=== PATIENT | male | born 1960 | race Caucasian/White ===

== ENCOUNTER → 2017-05-12 | Outpatient (CLI) | payer MEDICARE ==
[2017-05-12 08:16] LABS: Basophils % (A) 1 %; Eosinophils # (A) 0.1 k/uL (0-0.7); Eosinophils % (A) 4 %; HCT 46.6 % (39.0-53.0); HGB 14.8 gm/dL (13.0-17.5); Lymphocytes # (A) 0.7 k/uL (1.0-4.8); Lymphocytes % (A) 22 %; MCH 33.4 pg (25.0-35.0); MCHC 31.8 g/dL (31.0-37.0); MCV 105.2 fL (80.0-100.0); Macrocytosis Slight; Mean Platelet Volume 7.6; Monocytes # (A) 0.2 k/uL (0-1.0); Monocytes % (A) 5 %; Neutrophils % (A) 66 %; Platelet Count 141 k/uL (150-450); RBC 4.43 m/uL (4.30-5.90); RDW 13.6 % (11.5-15.5); WBC 3.1 k/uL (3.8-10.6)
[2017-05-12 08:19] LABS: Appearance,Urine Clear (Clear); Bilirubin,Urine Negative (Negative); Blood,Urine Negative (Negative); Color,Urine Yellow; Glucose,Urine (UA) Negative (Negative); Ketones,Urine Negative (Negative); Leukocyte Esterase,Urine Negative (Negative); Nitrite,Urine Negative (Negative); Protein,Urine Negative (Negative); Urobilinogen,Urine <2.0 mg/dL (<2.0)
[2017-05-12 08:25] LABS: Partial Thromboplastin Time 22.2 sec (22.0-30.0); Prothrombin Time 9.5 sec (9.0-12.0)
[2017-05-12 08:27] LABS: Anion Gap 8 mmol/L; Blood Urea Nitrogen 17 mg/dL (9-20); Calcium 10.4 mg/dL (8.4-10.2); Carbon Dioxide 30 mmol/L (22-30); Chloride 104 mmol/L (98-107); Glucose 97 mg/dL (74-99); Sodium 142 mmol/L (137-145)
== END | disposition home or self-care (01) ==
LOC: LABWHC1 07:10
PROVIDERS: ATTEND Orthopaedic Surgery Orthopaedic Surgery of the Spine
DX: Z01.812 Encounter for preprocedural laboratory examination (principal); Z01.818 Encounter for other preprocedural examination
CPT/HCPCS: 36415; 80048; 81003; 85025; 85610; 85730; 86850; 86900; 86901; 87070

== ENCOUNTER 2017-05-21 06:21 | Inpatient (IN) | payer MEDICARE, OTHER ==
[2017-05-14 11:09] VITALS: BMI 25.8
[~2017-05-21 06:21] MED LIST: BACITRACIN 50,000 UNIT, POLYMYXIN B 500,000 UNIT in SODIUM CHLORIDE 0.9% IRRIGATIO 1,00... IRRIGATION ONE; DEXAMETHASONE SOD PHOSPHATE 10 MG/ML 1 ML VIAL IV ONE; LACTATED RINGERS 1,000 ML IV SCH; ceFAZolin IN SWFI 2 GM/20 ML SYRINGE IVP ONE
[2017-05-21] MEDS ORDERED: LIDOCAINE 1% 20 ML VIAL (10MG/ML) FOR IV START INTRADERMA ONE (06:47)
[2017-05-21] MEDS: ONDANSETRON 4 MG/2 ML VIAL IVP ONE ×2 (06:47→12:45)
[2017-05-21] MEDS ORDERED: ePHEDrine SULFATE/0.9% NACL/PF 50 MG/5 ML SYRINGE IV ONE (09:04)
[2017-05-21] MEDS ORDERED: MIDAZOLAM 2 MG/2 ML VIAL ONE (09:04)
[2017-05-21] MEDS ORDERED: NEOSTIGMINE 1 MG/ML 10 ML VIAL ONE (09:04)
[2017-05-21] MEDS ORDERED: PHENYLEPHRINE-0.9% NACL SYG 1 MG/10 ML SYRINGE ONE (09:04)
[2017-05-21] MEDS ORDERED: ROCURONIUM BROMIDE 10 MG/ML 10 ML VIAL IV ONE (09:04)
[2017-05-21] MEDS ORDERED: GLYCOPYRROLATE 0.2 MG/ML 2 ML VIAL ONE (09:04)
[2017-05-21] MEDS ORDERED: SUCCINYLCHOLINE CHLORIDE 100 MG/5 ML SYR IV ONE (09:04)
[2017-05-21] MEDS ORDERED: fentaNYL (PF) 50 MCG/ML 2 ML AMP ONE (09:04)
[2017-05-21] MEDS ORDERED: PROPOFOL 10 MG/ML 20 ML VIAL IV ONE (09:04)
[2017-05-21] MEDS ORDERED: HYDROmorphone (PF) 1 MG/ML ONE (09:04)
[2017-05-21] MEDS ORDERED: GELATIN SPONGE,ABSORB (LARGE) 1 EACH SPONGE TOPICAL ONE (09:30)
[2017-05-21] MEDS ORDERED: LIDOCAINE 0.5% (PF) 5 MG/ML (50 ML SDV) SQ ONE (09:30)
[2017-05-21] MEDS ORDERED: THROMBIN (BOVINE) 5,000 UNIT VIAL TOPICAL ONE (09:30)
[2017-05-21] MEDS ORDERED: LACTATED RINGERS 1,000 ML IV ONE (11:04)
[2017-05-21] MEDS ORDERED: ONDANSETRON 4 MG/2 ML VIAL IVP PRN (11:45)
[2017-05-21] MEDS ORDERED: MAGNESIUM HYDROXIDE 2,400 MG/10 ML CUP PO PRN (11:45)
[2017-05-21] MEDS ORDERED: BENZOCAINE/MENTHOL LOZENG 1 EACH LOZENGE MUCOUS MEM PRN (11:45)
[2017-05-21] MEDS ORDERED: HYDROcodone/APAP 5-325MG 1 EACH TAB PO PRN (11:45)
[2017-05-21] MEDS ORDERED: HYDROmorphone 0.5 MG/0.5 ML SYRINGE IVP PRN ×2 (11:45)
[2017-05-21] MEDS ORDERED: DIAZEPAM 5 MG TAB PO PRN (11:45)
[2017-05-21] MEDS ORDERED: HYDROcodone/APAP 7.5-325MG 1 EACH TAB PO PRN (11:48)
--- NOTE | 2017-05-21 11:54 | P.OP ---
Date of Procedure: 05/21/17 Preoperative Diagnosis: Spinal stenosis L5-S1, degenerative disc disease L5-S1, lower extremity radiculopathy, facet arthrosis, low back pain Postoperative Diagnosis: Same Anesthesia: GETA Pathology: none sent Condition: stable Disposition: PACU Description of Procedure: DESCRIPTION OF PROCEDURE(S): BRIEF OPERATIVE NOTE Preoperative Diagnosis: Spinal stenosis L5-S1, degenerative disc disease L5-S1, facet arthrosis, low back pain with lower extremity radiculopathy, neurogenic claudication Postoperative Diagnosis: Same Procedure: Laminectomy and decompression L5-S1 Minimally invasive Posterior lateral decompression and facet fusion L5-S1 Minimally invasive Transforaminal lumbar interbody fusion for a 360 fusion L5-S1 Discectomy for decompression L5-S1 Placement of interbody graft L5-S1 Local autogenous bone grafting Harvesting of bone marrow aspirate via the pedicle of L4 5 Use of Cell Saver Use of bone graft extenders Surgeon: Dr. Carreon Large Animal Veterinarian: Terell KERN who is present throughout the entire the case persistence during positioning, dissection, exposure, visualization, and all crucial elements of the case as well as closure. Anesthesia: General anesthesia Estimated blood loss: Approximately 175 mL Complications: None apparent Components implanted: K2M minimally invasive [place] pedicle screw system with use of 4 screws measuring 6.5 x 50 mm with 2 rods and 1 [place] interbody titanium cage and 1 osteo amp sponge and DBX bone fibers to supplement the local autogenous bone graft and bone marrow aspirate Disposition: To recovery room in good stable condition. OPERATIVE INDICATIONS The patient has had long-standing issues in their lower back and lower extremities. He was found have significant changes lumbar spine with severe disc degeneration and evidence of spinal stenosis particular L5-S1 which correlated well with his low back and lower extremity symptoms. He had significant facet arthrosis and was having worsening neurogenic claudication despite conservative care. The patient has been through conservative treatment. We discussed various treatment options including surgery, and the patient wishes to proceed with surgery We discussed the risk, patient's alternatives and benefits of surgery including but not limited to, risk of bleeding risk of infection, risk of need for further surgery, risk of decreased , loss of motion, muscle function, malunion nonunion, hardware failure, nerve damage, paralysis, heart attack, blindness and . OPERATIVE SUMMARY After discussing all the risks, patient alternatives and benefits at length, the patient elected to proceed with surgical intervention, signed informed consent, and presented for their procedure. The patient was seen and examined in the preoperative holding area and the surgical site was marked. The patient was given antibiotics and brought to the operating room. The patient was sedated and intubated by anesthesia in standard fashion. The patient was positioned on to the operating room table in a prone position on the appropriate frame which was well-padded and well molded. We were careful to pad any bony prominences and pressure points. We were careful to maintain the patient's cervical spine and good neutral alignment and position throughout. The patient was prepped and draped in a normal standard fashion. An appropriate timeout and keystone protocol performed. We were able to proceed with the surgery. The local wound area was infiltrated with local anesthetic. I was able utilize C-arm guidance to establish appropriate position over the pedicles bilaterally at the appropriate levels at L5-S1. With the appropriate levels confirmed was able to make small stab incisions over the appropriate pedicle sites bilaterally. Utilizing C-arm in his house able to establish a Jamshidi needle over the lateral aspect of the pedicle and advanced the trocar into the pedicle being careful not to breech superiorly inferiorly medially or laterally. Position was confirmed regularly with AP and lateral images on C- arm. I was able to establish the trocar into the pedicle appropriately into the posterior aspect of the vertebral body bilaterally at the appropriate levels at L5-S1. This was done at each of the pedicle positions and each of the vertebrae. I was able place the guidewire into the trocar and into the vertebral body appropriately under C-arm guidance. Dissection was taken down over the wire to the appropriate starting position for the screw placed. The appropriate length screw was chosen, threaded over the guidewire and screwed appropriately into the pedicle and vertebral body under C-arm guidance in excellent alignment and position with good bony purchase. This is done at each of the screw sites at the appropriate levels bilaterally at L5 and S1. With the screws intact I extended the incision to connect the screw hole sites on the most symptomatic side on the right. I dissected down to establish access over the pars and lamina to the base of the spinous process. I was able to expose the facet joint. The capsule the facet was taken down and showed some facet arthrosis at the joint. I was able to use a combination of curettes and [place] rongeurs and a high-speed drill to take down the facet joint and do a facetectomy. Partial laminectomy was also performed. Note was made of significant ligamentum flavum thickening and inferior osteophytes at the facet joints causing significant stenosis prior to the decompression. I was able get excellent foraminal decompression and central decompression with undermining across midline to perform a laminectomy centrally and contralaterally. As able get good central decompression. The ligamentum flavum was taken down to further decompress centrally and at bilateral neural foramen. I was able to expose the disc space and visualize the traversing nerve root. Note was made of some disc protrusion at the level causing further compression of the nerve root. I was able to establish a annulotomy at the appropriate level protecting soft tissue and neural structures. Note was made of some disc desiccation at the disc. I performed a complete discectomy with accommodation of curettes and rasps and scrapers. A discectomy provided further decompression. I was able get good endplate preparation at the disc space. I sized for the appropriate size interbody spacer protecting the soft tissue and neural structures. The wound was copiously irrigated and suctioned dry. There is no evidence of any dural tear or leak. I was able to pack the disc space with local autogenous bone graft as well as a small amount of bone graft which was also placed into the interbody cage itself. Protecting the soft tissue structures and neural structures I was able place the interbody cage in good alignment and good position with good fit and fill at the interbody space at L5-S1. His issues was confirmed with C-arm guidance. Good hemostasis maintained. There is no evidence of any dural tear or leak. The wound was irrigated and suctioned dry. With the hardware intact, intraoperative C-arm imaging was again taken which showed good alignment and position of the hardware at the appropriate levels at L5-S1. We were then able to measure, contour and place the rods and appropriate hardware bilaterally. I was able to place capcrews, tighten them down, and torque them with the torque screwdriver appropriately. With this intact I was able to place the local autogenous bone graft with additional bone graft enhancer as necessary into the posterior lateral gutters over the decorticated transverse processes. The remainder of the bone graft was placed over the facet joint on the contralateral side after taking down the facet joint capsule. With the bone graft intact, a stable construct, and good decompression at the appropriate levels, we were able to proceed with closure. Good hemostasis was maintained. There is no evidence of dural tear or leak. The fascia was closed for a watertight closure. he subcuticular tissue was closed with absorbable suture. The wound was cleaned and dried and dressed with the appropriate dressing. The drapes were broken down. The patient was gently rolled back onto their hospital bed being careful to maintain their cervical spine and good neutral alignment and position. They were woken up by anesthesia, extubated, and brought to the recovery room in good stable condition. The patient will be admitted to the hospital for appropriate postoperative care , medical management and monitoring. We will continue to follow them closely about the postoperative course.
[2017-05-21] MEDS ORDERED: ENALAPRILAT 1.25 MG/ML 1 ML VIAL IVP ONE (12:54)
[2017-05-21] MEDS: HYDROmorphone 0.5 MG/0.5 ML SYRINGE IVP PRN ×4 (13:15→13:53)
--- NOTE | 2017-05-21 13:18 | FL ---
Fluoroscopy HISTORY: Lumbar fusion 65 seconds fluoroscopy time supplied to the referring clinician. 2 intraoperative C-arm images docum ent the procedure. See dictated report from orthopedic surgery.
--- NOTE | 2017-05-21 13:18 | XR ---
Limited lumbar spine HISTORY: Lumbar fusion 2 intraoperative C-arm images document the procedure
[2017-05-21] MEDS: SODIUM CHLORIDE 0.9% 1,000 ML IV SCH ×2 (14:53→14:54)
[2017-05-21] MEDS: clonazePAM 1 MG TAB PO SCH (17:31)
[2017-05-21] MEDS: ceFAZolin IN SWFI 2 GM/20 ML SYRINGE IVP SCH (17:31)
[2017-05-21] MEDS ORDERED: ENALAPRILAT 1.25 MG/ML 1 ML VIAL IVP PRN (17:37)
[2017-05-21] MEDS: HYDROcodone/APAP 5-325MG 1 EACH TAB PO PRN (19:12)
[2017-05-21] MEDS: carBAMazepine 400 MG TAB.ER.12H PO SCH (20:19)
[2017-05-21] MEDS: LITHIUM CARBONATE 300 MG CAP PO SCH (20:19)
[2017-05-21] MEDS ORDERED: QUEtiapine 200 MG TAB PO SCH (21:00)
[2017-05-21] MEDS ORDERED: clonazePAM 1 MG TAB PO SCH (21:00)
--- NOTE | 2017-05-21 22:59 | P.CONS ---
History of Present Illness - Reason for Consult Consult date: 05/21/17 - Chief Complaint Severe back pain - History of Present Illness 57-year-old male known to the office for his chronic follow-up for potential HIV exposure from his . The patient has remained HIV negative over the many years of the relationship. He does have a history of seizures and has been relatively compliant to his medications. Patient had markedly increased amount of back pain and was seen by orthopedic spine surgery. Evaluation revealed evidence of spinal stenosis and consequently to the operating room for the surgical decompression of L5-S1 with fusion. Postoperatively the patient is very comfortable and slightly sleepy. He is denying any acute difficulties at this time. Review of Systems HEENT:Denies headache or acute visual change. Denies sinus or mouth discomforts. Denies neck stiffness or pain. Denies significant oral cavity pain. Denies difficulty on swallowing. Lungs: Denies significant shortness of breath, cough, sputum production, or hemoptysis. Cardiovascular: Denies significant shortness of breath, chest pain, chest wall pain, orthopnea, dyspnea on exertion, syncope Gastrointestinal:Denies nausea, vomiting, diarrhea, constipation, hematemesis, melena, hematochezia. No no significant change of bowel habit noticed. Musculoskeletal: Progressive back pain limiting his ability to perform daily activities. Has a history of bilateral knee and bilateral hip replacements Skin: Denies new rash or lesions. No new ulcers or wounds are related.. Neuro: Denies headache or visual change. Denies any new onset weakness or difficulty with ambulation. Denies falls or seizures. Psychiatric: Chronic anxiety and depression Endocrine: Denies significant fatigue, denies significant weight loss or weight gain. Past Medical History Past Medical History: Cancer, Eye Disorder, Pneumonia, Seizure Disorder Additional Past Medical History / Comment(s): no seizure in the past 5 years, murmur, skin cancer History of Any Multi-Drug Resistant Organisms: None Reported Past Surgical History: Hernia Repair, Joint Replacement Additional Past Surgical History / Comment(s): Bilateral total hip arthroplasties, bilateral total knee arthroplasties each with a revision., hernia at 9 weeks, back fusion L5-S1 05/21/17 Past Anesthesia/Blood Transfusion Reactions: No Reported Reaction Past Psychological History: ADD/ADHD, Bipolar, Panic Disorder Additional Psychological History / Comment(s): Bipolar. to his over the last several months. is HIV positive, patient has had ongoing testing remains HIV negative over the last many years. Stopped tobacco smoking for the surgery. Does not have a history of significant alcohol use or recreational drug use. No experience. No international travel. No pets in the home Smoking Status: Former smoker (Stopping for his surgery.) Past Alcohol Use History: None Reported Past Drug Use History: None Reported - Past Family History Sister(s) Family Medical History: Cancer Additional Family Medical History / Comment(s): breast Father Family Medical History: Cancer Additional Family Medical History / Comment(s): bladder and colon Medications and Allergies Home Medications and Allergies Comment(s): Current Medications Hydrocodone Bitart/Acetaminophen ([place] 5-325) 1 each PO Q4HR PRN PRN Reason: Moderate Pain Hydrocodone Bitart/Acetaminophen ([place] 5-325) 2 each PO Q4HR PRN PRN Reason: Moderate Pain Last Admin: 05/21/17 19:12 Dose: 2 each Benzocaine/Menthol (Cepacol Lozenge) 1 each MUCOUS MEM Q4HR PRN PRN Reason: Sore Throat Carbamazepine (Tegretol Xr) 400 mg PO BID [facility] Last Admin: 05/21/17 20:19 Dose: 400 mg Cefazolin Sodium (Kefzol) 2 gm IVP Q8H [facility] Stop: 05/22/17 01:01 Last Admin: 05/21/17 17:31 Dose: 2 gm Clonazepam (Klonopin) 1 mg PO Q12H [facility] Last Admin: 05/21/17 17:31 Dose: 1 mg Clonazepam (Klonopin) 2 mg PO HS [facility] Last Admin: 05/21/17 20:20 Dose: 2 mg Diazepam (Valium) 5 mg PO QID PRN PRN Reason: Anxiety Duloxetine HCl (Cymbalta) 60 mg PO QAM [facility] Enalaprilat (Vasotec) 1.25 mg IVP Q6HR PRN PRN Reason: Blood Pressure - High Hydromorphone HCl (Dilaudid) 0.5 mg IVP Q4HR PRN PRN Reason: Pain Hydromorphone HCl (Dilaudid) 1 mg IVP Q4HR PRN PRN Reason: Pain Sodium Chloride (Saline 0.9%) 1,000 mls @ 75 mls/hr IV .[id number] [facility] Last Admin: 05/21/17 14:54 Dose: Not Given [place] Carbonate ([place] Carbonate) 600 mg PO BID [facility] Last Admin: 05/21/17 20:19 Dose: 600 mg Magnesium Hydroxide (Milk Of Magnesia) 2,400 mg PO DAILY PRN PRN Reason: Constipation Ondansetron HCl (Zofran) 4 mg IVP Q12HR PRN PRN Reason: Nausea And Vomiting Quetiapine Fumarate (Seroquel) 600 mg PO [facility] Last Admin: 05/21/17 20:19 Dose: 600 mg Senna/Docusate Sodium (Senokot-S) 1 each PO DAILY [facility] Home Medications Medication Instructions Recorded Confirmed Type DULoxetine HCL [Cymbalta] 60 mg PO QAM 05/14/17 05/21/17 History Hydrocodone/Acetaminophen [[place] 1 tab PO Q4-6H PRN 05/14/17 05/21/17 History 7.5-325] [place] Carbonate 600 mg PO BID 05/14/17 05/21/17 History QUEtiapine FUMARATE [SEROquel] 600 mg PO HS 05/14/17 05/21/17 History clonazePAM [KlonoPIN] 1 mg PO BID 05/14/17 05/21/17 History clonazePAM [KlonoPIN] 2 mg PO HS 05/14/17 05/21/17 History carBAMazepine [TEGretol XR] 400 mg PO Q12HR 05/21/17 05/21/17 History Allergies Allergy/AdvReac Type Severity Reaction Status Date / Time cyclobenzaprine AdvReac Nausea & Verified 05/21/17 14:13 [From Flexeril] Vomiting Physical Exam Vitals: Vital Signs Temp Pulse Pulse Pulse Resp BP Pulse Ox 05/21/17 20:55 99.2 F 77 16 151/73 95 05/21/17 16:30 89 148/83 05/21/17 16:15 90 153/83 05/21/17 16:00 97 176/91 05/21/17 15:45 80 128/80 05/21/17 15:30 83 150/80 05/21/17 15:15 81 141/82 05/21/17 15:00 78 134/70 05/21/17 14:45 85 162/80 05/21/17 14:30 97.0 F L 81 16 154/91 96 05/21/17 14:00 79 18 154/84 98 05/21/17 13:31 75 16 150/77 99 05/21/17 13:00 74 16 165/78 100 05/21/17 12:45 78 16 173/78 100 05/21/17 12:30 81 16 152/73 100 05/21/17 12:16 78 16 162/83 100 05/21/17 12:00 98.5 F 84 16 166/79 98 05/21/17 06:34 97.8 F 64 16 131/76 100 Intake and Output 05/21/17 05/21/17 05/21/17 06:59 14:59 22:59 Intake Total 300 2201 Output Total 420 Balance 300 1781 Intake: IV 300 2201 Output: Urine 245 Estimated Blood Loss 175 Other: Voiding Method Toilet Toilet Urinal Urinal HEENT: Anicteric conjunctiva are pink and moist nasal mucosa grossly intact without significant lesions, there is no thrush. Neck: The neck is supple without significant lymphadenopathy or thyromegaly. Lungs: Good bilateral air entry without significant crackles or wheezing. There is no significant bronchial sounds. There is no egophony or dullness. Heart: Regular rate and rhythm with an audible S1-S2, no S3 no S4. There is no significant murmur click or rub, PMI was nondisplaced. Abdomen: Positive bowel sounds soft and nontender without palpable masses or organomegaly. There was no guarding or rebound. Extremities: The upper extremities have excellent pulses they are symmetric, no significant petechiae or telangiectasia. No splinter hemorrhages were noted. The lower extremities are free from significant edema. The peripheral pulses were 2+ and symmetric. The prior surgical wound to the hips and knees are well- healed. The back dressing is not evaluated at this time in that he is directly postoperative period Neuro: Arousable and oriented to person place and time. Is quite sleepy postoperatively though Assessment and Plan (1) Spinal stenosis of lumbosacral region Current Visit: Yes Status: Acute Code(s): M48.07 - SPINAL STENOSIS, LUMBOSACRAL REGION SNOMED Code(s): 35945436 (2) Seizure disorder Narrative/Plan: 57-year-old male who is status post L5-S1 decompressive laminectomy for spinal stenosis, is postoperative and doing relatively well. She was maintained on his Tegretol. His levels have been quite stable over time. He should also be maintained and his lithium, Klonopin, and Seroquel and Cymbalta as per his psychiatrist. Levels have been adequate with no toxicity over time. He will monitor through his hospitalization. Blood pressure was elevated and Vasotec I.V. has been added with if necessary for uncontrolled hypertension. Blood pressure is showing some improvement in the postoperative time frame. Current Visit: Yes Status: Acute Code(s): G40.909 - EPILEPSY, UNSP, NOT INTRACTABLE, WITHOUT STATUS EPILEPTICUS SNOMED Code(s): 699492733 (3) Bipolar 1 disorder Current Visit: Yes Status: Acute Code(s): F31.9 - BIPOLAR DISORDER, UNSPECIFIED SNOMED Code(s): 979241549
[2017-05-22] MEDS: ceFAZolin IN SWFI 2 GM/20 ML SYRINGE IVP SCH (02:14)
[2017-05-22] MEDS: SODIUM CHLORIDE 0.9% 1,000 ML IV SCH (02:16)
[2017-05-22] MEDS: clonazePAM 1 MG TAB PO SCH (05:20)
[2017-05-22] MEDS: HYDROcodone/APAP 5-325MG 1 EACH TAB PO PRN (05:23)
[2017-05-22 07:21] LABS: Basophils % (A) 0 %; Eosinophils # (A) 0.1 k/uL (0-0.7); Eosinophils % (A) 2 %; HCT 40.7 % (39.0-53.0); HGB 12.7 gm/dL (13.0-17.5); Lymphocytes # (A) 0.3 k/uL (1.0-4.8); Lymphocytes % (A) 5 %; MCH 32.7 pg (25.0-35.0); MCHC 31.1 g/dL (31.0-37.0); MCV 105.1 fL (80.0-100.0); Macrocytosis Slight; Mean Platelet Volume 7.6; Monocytes # (A) 0.2 k/uL (0-1.0); Monocytes % (A) 4 %; Neutrophils # (A) 4.5 k/uL (1.3-7.7); Neutrophils % (A) 88 %; Platelet Count 122 k/uL (150-450); RBC 3.88 m/uL (4.30-5.90); RDW 13.2 % (11.5-15.5); WBC 5.1 k/uL (3.8-10.6)
[2017-05-22 07:40] VITALS: BP 158/85; PULSE 90; RESP 14; TEMP 98.9
[2017-05-22 07:48] LABS: Anion Gap 8 mmol/L; Blood Urea Nitrogen 10 mg/dL (9-20); Calcium 9.6 mg/dL (8.4-10.2); Carbon Dioxide 24 mmol/L (22-30); Chloride 108 mmol/L (98-107); Glucose 118 mg/dL (74-99); Potassium 4.4 mmol/L (3.5-5.1); Sodium 140 mmol/L (137-145)
[2017-05-22] MEDS ORDERED: SENNOSIDES-DOCUSATE SODIUM 1 EACH TAB PO SCH (09:00)
[2017-05-22] MEDS: LITHIUM CARBONATE 300 MG CAP PO SCH (09:00)
[2017-05-22] MEDS: carBAMazepine 400 MG TAB.ER.12H PO SCH (09:00)
[2017-05-22] MEDS ORDERED: DULoxetine HCL 60 MG CAPSULE.DR PO SCH (09:00)
--- NOTE | 2017-05-22 10:25 | P.DS ---
Providers Date of admission: 05/21/17 06:21 Expected date of discharge: 05/22/17 Attending physician: Vikash Carreon Consults: 05/21/17 11:45 Consult Physician Routine Consulting Provider: Adria Payton Reason/Comments: Medical management Do you want consulting provider notified?: Yes Primary care physician: Adria Payton - Discharge Diagnosis(es) (1) Status post lumbar spinal fusion Current Visit: Yes Status: Acute (2) Facet arthritis, degenerative, L5-S1 level, lumbosacral spine Current Visit: Yes Status: Acute (3) Degenerative disc disease at L5-S1 level Current Visit: Yes Status: Acute (4) Lumbosacral stenosis with neurogenic claudication Current Visit: Yes Status: Acute (5) Low back pain Current Visit: Yes Status: Acute (6) Radiculopathy with lower extremity symptoms Current Visit: Yes Status: Acute Hospital Course: This is a pleasant 57-year-old male who presented with L5-S1 spinal stenosis, neurogenic claudication, degenerative disc disease, and facet arthrosis with low back pain and lower extremity radiculopathy who failed outpatient conservative therapy. He was admitted for an L5-S1 minimally invasive posterior lateral decompression and fusion with transforaminal lumbar interbody fusion. The patient tolerated the procedure well and did well postoperatively. He has been able to ambulate to the restroom and in his room without difficulty. He is moving in bed without difficulty. He states his pain has been well-controlled. He feels he is ready for discharge home. He is planning to ambulate the hallways prior to discharge home. Condition on day of discharge stable. Patient will be discharged home. Patient was cleared preoperatively for surgery by Dr. Payton. Patient currently denies any nausea, vomiting, fever, or chills. Patient is eating and voiding freely without difficulty. Dressing is changed prior to discharge. Patient may shower Tegaderm dressing intact. Patient may remove Tegaderm dressing in 3 days and shower without a dressing at that time. Patient should refrain from driving until at least after their first follow-up appointment in the office. Patient should avoid excessive bending, lifting, and twisting; no lifting greater than 10 pounds. Patient was previously prescribed [place] 7.5 mg/325 mg 1 tab every 4- 6 hours as needed for pain by Dr. Taylor in pain management. Patient states he has adequate amount of this medication at home. He may resume this medication as prescribed as needed for pain control. He may resume other home medications as previously prescribed as well. He should avoid anti- inflammatory medications over the next 6 weeks. Patient will plan to follow-up in approximately 2-3 weeks for further evaluation. We discussed if he has any difficulties prior to his scheduled follow-up appointment, he may call the office for an earlier appointment for evaluation. Physical Exam on day of discharge: Patient is awake, alert, and oriented 3 Vital signs stable Good chest excursion with deep inspiration and expiration Abdomen soft nontender No signs or symptoms of DVT; no calf pain Extensor hallucis longus, plantarflexion, and dorsiflexion positive sustained bilateral lower extremities Dressing is removed during physical examination and new dressing is reapplied Tegaderm dressing and non-stick Telfa intact Incision is clean, dry, and intact; no erythema, purulence, or signs of infection No significant with palpation over the incision sites No active drainage from the incision sites Evidence of a tattoo along the lumbosacral spine Procedures: L5-S1 minimally invasive posterior lateral decompression and fusion with transforaminal lumbar interbody fusion Patient Condition at Discharge: Stable Plan - Discharge Summary New Discharge Prescriptions: No Action QUEtiapine FUMARATE [SEROquel] 600 mg PO HS DULoxetine HCL [Cymbalta] 60 mg PO QAM clonazePAM [KlonoPIN] 1 mg PO BID clonazePAM [KlonoPIN] 2 mg PO HS [place] Carbonate 600 mg PO BID Hydrocodone/Acetaminophen [[place] 7.5-325] 1 tab PO Q4-6H PRN PRN Reason: Pain carBAMazepine [TEGretol XR] 400 mg PO Q12HR Discharge Medication List DULoxetine HCL [Cymbalta] 60 mg PO QAM 05/14/17 [History] Hydrocodone/Acetaminophen [[place] 7.5-325] 1 tab PO Q4-6H PRN 05/14/17 [History] [place] Carbonate 600 mg PO BID 05/14/17 [History] QUEtiapine FUMARATE [SEROquel] 600 mg PO HS 05/14/17 [History] clonazePAM [KlonoPIN] 1 mg PO BID 05/14/17 [History] clonazePAM [KlonoPIN] 2 mg PO HS 05/14/17 [History] carBAMazepine [TEGretol XR] 400 mg PO Q12HR 05/21/17 [History] Follow up Appointment(s)/Referral(s): Vikash Carreon DO [Doctor of Osteopathic Medicine] - 06/06/17 9:30 am Activity/Diet/Wound Care/Special Instructions: 1. Patient may shower with Tegaderm dressing intact. 2. Patient may remove Tegaderm dressing in 3 days and shower without a dressing at that time. 3. Patient should refrain from driving until at least after their first follow- up appointment in the office. 4. Patient should avoid excessive bending, twisting, and lifting; no lifting greater than 10 pounds 5. Take medications as prescribed 6. Do not soak in tub Discharge Disposition: HOME SELF-CARE
== END 2017-05-22 11:50 | disposition home health service (06) | DRG 455 ==
LOC: 2ORMAIN 06:21 → 3SUR 13:52
PROVIDERS: ADMIT Orthopaedic Surgery Orthopaedic Surgery of the Spine; ATTEND Orthopaedic Surgery Orthopaedic Surgery of the Spine
PROC: 0SG3071 Fusion of Lumbosacral Joint with Autologous Tissue Substitute, Posterior Approach, Posterior Column, Open Approach (ICD-10-PCS; 2017-05-21)
PROC: 0ST40ZZ Resection of Lumbosacral Disc, Open Approach (ICD-10-PCS; 2017-05-21)
PROC: 07DS3ZZ Extraction of Vertebral Bone Marrow, Percutaneous Approach (ICD-10-PCS; 2017-05-21)
PROC: 4A11X4G Monitoring of Peripheral Nervous Electrical Activity, Intraoperative, External Approach (ICD-10-PCS; 2017-05-21)
PROC: 0SG30AJ Fusion of Lumbosacral Joint with Interbody Fusion Device, Posterior Approach, Anterior Column, Open Approach (ICD-10-PCS; principal; 2017-05-21 08:00)
DX: M48.07 Spinal stenosis, lumbosacral region (principal); F31.9 Bipolar disorder, unspecified; M47.27 Other spondylosis with radiculopathy, lumbosacral region; M51.17 Intervertebral disc disorders with radiculopathy, lumbosacral region; I10 Essential (primary) hypertension; G40.909 Epilepsy, unspecified, not intractable, without status epilepticus; F41.0 Panic disorder [episodic paroxysmal anxiety]; F90.9 Attention-deficit hyperactivity disorder, unspecified type; Z79.899 Other long term (current) drug therapy; Z87.01 Personal history of pneumonia (recurrent); Z96.643 Presence of artificial hip joint, bilateral; Z96.653 Presence of artificial knee joint, bilateral; Z87.891 Personal history of nicotine dependence; Z88.8 Allergy status to other drugs, medicaments and biological substances
CPT/HCPCS: 72100; 80048; 85025; 86850; 86900; 86901

== ENCOUNTER → 2017-10-17 | Outpatient (CLI) | payer MEDICARE ==
[2017-10-17 07:52] LABS: Basophils % (A) 1 %; Eosinophils # (A) 0.2 k/uL (0-0.7); Eosinophils % (A) 7 %; HCT 43.3 % (39.0-53.0); HGB 14.1 gm/dL (13.0-17.5); Lymphocytes # (A) 0.7 k/uL (1.0-4.8); Lymphocytes % (A) 31 %; MCH 33.6 pg (25.0-35.0); MCHC 32.6 g/dL (31.0-37.0); MCV 103.1 fL (80.0-100.0); Macrocytosis Slight; Mean Platelet Volume 7.6; Monocytes # (A) 0.2 k/uL (0-1.0); Monocytes % (A) 7 %; Neutrophils # (A) 1.2 k/uL (1.3-7.7); Neutrophils % (A) 52 %; Platelet Count 119 k/uL (150-450); RDW 13.7 % (11.5-15.5); WBC 2.3 k/uL (3.8-10.6)
[2017-10-17 09:05] LABS: Albumin 4.2 g/dL (3.5-5.0); Calcium 9.8 mg/dL (8.4-10.2); Carbamazepine (Tegretol) 5.9 ug/mL; Total Bilirubin 0.4 mg/dL (0.2-1.3); Total Protein 6.7 g/dL (6.3-8.2)
[2017-10-17 17:28] LABS: HIV AB P24 Non-Reactive (Non-Reactive); HIV P24 AG Non-Reactive (Non-Reactive)
== END | disposition home or self-care (01) ==
LOC: LABWHC1 06:51
PROVIDERS: ATTEND Internal Medicine Infectious Disease
DX: M54.5 Low back pain (principal)
CPT/HCPCS: 36415; 80053; 80156; 85025; 87390

== ENCOUNTER → 2017-10-31 | Outpatient (CLI) | payer MEDICARE ==
[2017-10-31 07:20] LABS: Basophils % (A) 1 %; Eosinophils # (A) 0.2 k/uL (0-0.7); Eosinophils % (A) 6 %; HCT 43.5 % (39.0-53.0); Lymphocytes # (A) 0.8 k/uL (1.0-4.8); Lymphocytes % (A) 29 %; MCH 33.6 pg (25.0-35.0); MCHC 32.2 g/dL (31.0-37.0); MCV 104.3 fL (80.0-100.0); Macrocytosis Slight; Mean Platelet Volume 8.4; Monocytes # (A) 0.2 k/uL (0-1.0); Monocytes % (A) 7 %; Neutrophils # (A) 1.5 k/uL (1.3-7.7); Neutrophils % (A) 55 %; Platelet Count 125 k/uL (150-450); RBC 4.18 m/uL (4.30-5.90); RDW 13.4 % (11.5-15.5); WBC 2.8 k/uL (3.8-10.6)
[2017-10-31 07:37] LABS: Albumin 4.3 g/dL (3.5-5.0); Calcium 9.9 mg/dL (8.4-10.2); Total Bilirubin 0.4 mg/dL (0.2-1.3); Total Protein 6.6 g/dL (6.3-8.2)
[2017-10-31 08:52] LABS: Lithium 1.2 mmol/L
[2017-10-31 16:02] LABS: Hepatitis A Antibody IgM Non-Reactive (Non-Reactive); Hepatitis B Core IgM Non-Reactive (Non-Reactive)
== END | disposition home or self-care (01) ==
LOC: LABWHC1 07:03
PROVIDERS: ATTEND Internal Medicine Infectious Disease
DX: K75.9 Inflammatory liver disease, unspecified (principal)
CPT/HCPCS: 36415; 80053; 80074; 80178; 85025

== ENCOUNTER → 2018-06-19 | Outpatient (CLI) | payer MEDICARE ==
[2018-06-19 08:09] LABS: Basophils % (A) 1 %; Eosinophils # (A) 0.2 k/uL (0-0.7); Eosinophils % (A) 5 %; HCT 46.2 % (39.0-53.0); HGB 13.9 gm/dL (13.0-17.5); Lymphocytes # (A) 0.9 k/uL (1.0-4.8); Lymphocytes % (A) 18 %; MCH 31.5 pg (25.0-35.0); MCV 105.1 fL (80.0-100.0); Macrocytosis Slight; Monocytes # (A) 0.3 k/uL (0-1.0); Monocytes % (A) 6 %; Neutrophils # (A) 3.2 k/uL (1.3-7.7); Neutrophils % (A) 69 %; Platelet Count 128 k/uL (150-450); RDW 13.3 % (11.5-15.5); WBC 4.7 k/uL (3.8-10.6)
[2018-06-19 12:24] LABS: Albumin 4.4 g/dL (3.80-4.90); Albumin/Globulin Ratio 2.32 (1.60-3.17); Anion Gap 7.9 mmol/L (4.00-12.00); Calcium 9.7 mg/dL (8.7-10.3); Carbon Dioxide 25.1 mmol/L (21.6-31.8); Globulin 1.9 g/dL (1.6-3.3); Lithium 1.2 mmol/L (1.0-1.2); Potassium 4.9 mmol/L (3.5-5.5); Total Bilirubin 0.3 mg/dL (0.2-1.2); Total Protein 6.3 g/dL (6.2-8.2)
[2018-06-19 13:06] LABS: Hepatitis B Core IgM Non-Reactive (Non-Reactive)
[2018-06-19 13:07] LABS: Hepatitis A Antibody IgM Non-Reactive (Non-Reactive)
== END | disposition home or self-care (01) ==
LOC: LABWHC1 07:22
PROVIDERS: ATTEND Internal Medicine Infectious Disease
DX: K75.9 Inflammatory liver disease, unspecified (principal)
CPT/HCPCS: 36415; 80053; 80074; 80178; 85025

== ENCOUNTER → 2018-12-08 | Outpatient (CLI) | payer MEDICARE ==
[2018-12-08 07:36] LABS: Basophils % (A) 1 %; Eosinophils # (A) 0.3 k/uL (0-0.7); Eosinophils % (A) 7 %; HCT 42.5 % (39.0-53.0); HGB 13.6 gm/dL (13.0-17.5); Lymphocytes # (A) 0.8 k/uL (1.0-4.8); Lymphocytes % (A) 19 %; MCH 33.2 pg (25.0-35.0); MCV 103.9 fL (80.0-100.0); Macrocytosis Slight; Mean Platelet Volume 8.2; Monocytes # (A) 0.3 k/uL (0-1.0); Monocytes % (A) 6 %; Neutrophils # (A) 2.9 k/uL (1.3-7.7); Neutrophils % (A) 66 %; Platelet Count 158 k/uL (150-450); RBC 4.09 m/uL (4.30-5.90); RDW 14.3 % (11.5-15.5); WBC 4.4 k/uL (3.8-10.6)
[2018-12-08 16:54] LABS: Carbamazepine (Tegretol) 6.6 ug/mL (4.0-12.0)
[2018-12-08 17:29] LABS: African American GFR (CKD) 75.7 (60.0-200.0); Albumin 4.2 g/dL (3.80-4.90); Albumin/Globulin Ratio 2.33 (1.60-3.17); BUN/Creat Ratio 14.17 Ratio (12.00-20.00); Calcium 9.4 mg/dL (8.7-10.3); Globulin 1.8 g/dL (1.6-3.3); Lithium 1.1 mmol/L (0.5-1.2); Potassium 5.2 mmol/L (3.5-5.5); Total Bilirubin 0.2 mg/dL (0.3-1.2)
[2018-12-08 17:30] LABS: HIV 1 AB Non-Reactive (Non-Reactive); HIV AB P24 Non-Reactive (Non-Reactive); HIV P24 AG Non-Reactive (Non-Reactive)
== END | disposition home or self-care (01) ==
LOC: LABWHC1 06:30
PROVIDERS: ATTEND Internal Medicine Infectious Disease
DX: R56.9 Unspecified convulsions (principal); B20 Human immunodeficiency virus [HIV] disease
CPT/HCPCS: 36415; 80053; 80156; 80178; 85025; 87390

== ENCOUNTER 2020-05-28 11:55 | Inpatient (IN) | payer MEDICARE, OTHER ==
--- NOTE | 2020-05-28 12:08 | ED ---
Neuro HPI - General Chief Complaint: Neuro Symptoms/Deficit Stated Complaint: slurred speech Time Seen by Provider: 05/28/20 12:07 Source: patient Mode of arrival: ambulatory - History of Present Illness Is the patient presenting with stroke symptoms?: No Last Known Well Date: 05/21/20 -: week(s) Initial Comments: Brendan is a pleasant 60-year-old gentleman presents to the ER today via private vehicle for evaluation of tremors, generalized weakness, weight loss and per his partner bedside and slurred speech and not seeming like himself. Symptoms have been persistent throughout the week. Partner reports that Brendan has not been eating or drinking well, he has been taking his medications. He's been complaining of feeling somewhat foggy and having orbs in his vision which is new for him. Denies any recent illness, fevers chills nausea or vomiting. Reports he just does not feel right he feels weak and shaky. Partner reports that he hasn't even been able to lift a cup to his mouth due to weakness. Location: speech History of same: No Treatments Prior to Arrival: none - Related Data Home Medications: Home Medications Medication Instructions Recorded Confirmed DULoxetine HCL [Cymbalta] 60 mg PO DAILY 05/14/17 05/28/20 QUEtiapine FUMARATE [SEROquel] 600 mg PO HS 05/14/17 05/28/20 clonazePAM [KlonoPIN] 1 mg PO HS 05/14/17 05/28/20 clonazePAM [KlonoPIN] 2 mg PO DAILY 05/14/17 05/28/20 carBAMazepine [TEGretol XR] 400 mg PO BID 05/21/17 05/28/20 Cyclobenzaprine [Flexeril] 20 mg PO HS 05/28/20 05/28/20 DULoxetine HCL [Cymbalta] 30 mg PO DAILY 05/28/20 05/28/20 [place] Carbonate [[place] 600 mg PO BID 05/28/20 05/28/20 Carbonate ER] Sildenafil Citrate 100 mg PO DAILY PRN 05/28/20 05/28/20 Allergies/Adverse Reactions: Allergies Allergy/AdvReac Type Severity Reaction Status Date / Time No Known Allergies Allergy Unverified 05/28/20 12:55 Review of Systems ROS Statement: Those systems with pertinent positive or pertinent negative responses have been documented in the HPI. ROS Other: All systems not noted in ROS Statement are negative. General Exam - General Exam Comments Initial Comments: Physical Exam GENERAL: Chronically ill appearing, appears dehydrated HENT: Normocephalic, Atraumatic. EYES: PERRL, EOMI PULMONARY: Unlabored respirations. No audible rales rhonchi or wheezing was noted. CARDIOVASCULAR: Regular rate ABDOMEN: Soft and nontender with normal bowel sounds. SKIN: Dry, appears dehydrated : Deferred NEUROLOGIC: Patient is alert and oriented x3 Tremor noted Generalized weakness with no lateralizing symptoms Moving all extremities spontaneously MUSCULOSKELETAL: General weakness PSYCHIATRIC: Normal psychiatric evaluation. Stroke MDM - Lab Data Result diagrams: 05/28/20 12:26 05/28/20 12: Lab Results 05/28/20 05/28/20 05/28/20 Range/Units 12:26 12: 12:26 WBC 4.8 (3.8-10.6) k/uL RBC 4.06 L (4.30-5.90) m/uL Hgb 13.3 (13.0-17.5) gm/dL Hct 40.2 (39.0-53.0) % MCV 99.1 (80.0-100.0) fL MCH 32.7 (25.0-35.0) pg MCHC 33.0 (31.0-37.0) g/dL RDW 12.2 (11.5-15.5) % Plt Count 128 L (150-450) k/uL MPV 8.2 Neutrophils % 74 % Lymphocytes % 16 % Monocytes % 6 % Eosinophils % 3 % Basophils % 1 % Neutrophils # 3.5 (1.3-7.7) k/uL Lymphocytes # 0.8 L (1.0-4.8) k/uL Monocytes # 0.3 (0-1.0) k/uL Eosinophils # 0.1 (0-0.7) k/uL Basophils # 0.0 (0-0.2) k/uL PT 9.7 (9.0-12.0) sec INR 0.9 (<1.2) APTT 22.6 (22.0-30.0) sec Sodium 134 L (137-145) mmol/L Potassium 4.6 (3.5-5.1) mmol/L Chloride 105 (98-107) mmol/L Carbon Dioxide 22 (22-30) mmol/L Anion Gap 7 mmol/L BUN 24 H (9-20) mg/dL Creatinine 1.49 H (0.66-1.25) mg/dL Est GFR (CKD-EPI)AfAm 58 (>60 ml/min/1.73 sqM) Est GFR (CKD-EPI)NonAf 50 (>60 ml/min/1.73 sqM) Glucose 102 H (74-99) mg/dL Calcium 10.4 H (8.4-10.2) mg/dL Magnesium 2.4 H (1.6-2.3) mg/dL Total Bilirubin 0.5 (0.2-1.3) mg/dL AST 21 (17-59) U/L ALT 28 (4-49) U/L Alkaline Phosphatase 207 H (38-126) U/L Troponin I (0.000-0.034) ng/mL NT-Pro-B Natriuret Pep pg/mL Total Protein 7.4 (6.3-8.2) g/dL Albumin 4.5 (3.5-5.0) g/dL TSH 2.350 (0.465-4.680) mIU/L Carbamazepine 6.7 ug/mL [place] 2.5 H* mmol/L 05/28/20 05/28/20 Range/Units 12:26 12:26 WBC (3.8-10.6) k/uL RBC (4.30-5.90) m/uL Hgb (13.0-17.5) gm/dL Hct (39.0-53.0) % MCV (80.0-100.0) fL MCH (25.0-35.0) pg MCHC (31.0-37.0) g/dL RDW (11.5-15.5) % Plt Count (150-450) k/uL MPV Neutrophils % % Lymphocytes % % Monocytes % % Eosinophils % % Basophils % % Neutrophils # (1.3-7.7) k/uL Lymphocytes # (1.0-4.8) k/uL Monocytes # (0-1.0) k/uL Eosinophils # (0-0.7) k/uL Basophils # (0-0.2) k/uL PT (9.0-12.0) sec INR (<1.2) APTT (22.0-30.0) sec Sodium (137-145) mmol/L Potassium (3.5-5.1) mmol/L Chloride (98-107) mmol/L Carbon Dioxide (22-30) mmol/L Anion Gap mmol/L BUN (9-20) mg/dL Creatinine (0.66-1.25) mg/dL Est GFR (CKD-EPI)AfAm (>60 ml/min/1.73 sqM) Est GFR (CKD-EPI)NonAf (>60 ml/min/1.73 sqM) Glucose (74-99) mg/dL Calcium (8.4-10.2) mg/dL Magnesium (1.6-2.3) mg/dL Total Bilirubin (0.2-1.3) mg/dL AST (17-59) U/L ALT (4-49) U/L Alkaline Phosphatase (38-126) U/L Troponin I <0.012 (0.000-0.034) ng/mL NT-Pro-B Natriuret Pep 46 pg/mL Total Protein (6.3-8.2) g/dL Albumin (3.5-5.0) g/dL TSH (0.465-4.680) mIU/L Carbamazepine ug/mL [place] mmol/L - NIH Stroke Scale 1a. Level of Consciousness: (0) alert 1b. LOC Questions: (0) answers correctly 1c. LOC Commands: (0) performs tasks correctly 2. Best Gaze: (0) normal 3. Visual: (0) no visual loss 4. Facial Palsy: (0) normal symmetrical movement 5a. Motor Arm Left: (0) no drift 5b. Motor Arm Right: (0) no drift 6a. Motor Leg Left: (0) no drift 6b. Motor Leg Right: (0) no drift 7. Limb Ataxia: (0) absent 8. Sensory: (0) normal 9. Best Language: (0) no aphasia 10. Dysarthria: (0) normal 11. Extinction/Inattention: (0) no abnormality - Thrombolytic Inclusion/Exclusion Thrombolytic Exclusion Criteria: Onset of Symptoms Unknown - Medical Decision Making Patient seen and evaluated immediately upon arrival Symptoms not consistent with stroke and >1 wk Labs were ordered EKG was reviewed initial EKG appeared to be sinus bradycardia, repeat EKG appeared that it could be atrial flutter with a 3-1 block however this may be due to patient's tremor Labs resulted with evidence of dehydration and lithium toxicity this is chronic in nature Care was discussed with poison control who recommended fluid rehydration and trending lithium levels hold oral lithium She care was discussed with Dr Dixon who accepts the admission for dehydration or lithium toxicity resulting in tremor with no seizures or other neurologic involvement. Past Medical History Past Medical History: Cancer, Eye Disorder, Pneumonia, Seizure Disorder Additional Past Medical History / Comment(s): no seizure in the past 5 years, murmur, skin cancer History of Any Multi-Drug Resistant Organisms: None Reported Past Surgical History: Hernia Repair, Joint Replacement Additional Past Surgical History / Comment(s): Bilateral total hip arthroplasties, bilateral total knee arthroplasties each with a revision., hernia at 9 weeks, back fusion L5-S1 05/21/17 Past Anesthesia/Blood Transfusion Reactions: No Reported Reaction Past Psychological History: ADD/ADHD, Bipolar, Panic Disorder Smoking Status: Current every day smoker Past Alcohol Use History: None Reported Past Drug Use History: None Reported - Past Family History Sister(s) Family Medical History: Cancer Additional Family Medical History / Comment(s): breast Father Family Medical History: Cancer Additional Family Medical History / Comment(s): bladder and colon Course Vital Signs 05/28/20 05/28/20 05/28/20 11:57 12:24 13:25 Temperature 98.5 F Pulse Rate 71 60 61 Respiratory 18 18 16 Rate Blood Pressure 139/83 143/83 125/77 O2 Sat by Pulse 98 100 98 Oximetry Disposition Clinical Impression: [place] toxicity, Dehydration Disposition: ADMITTED IP TO THIS HOSP Condition: Serious Is patient prescribed a controlled substance at d/c from ED?: No Referrals: Lisa Diaz MD [Primary Care Provider] - 1-2 days
[2020-05-28] MEDS ORDERED: SODIUM CHLORIDE 0.9% 1,000 ML IV STA ×2 (12:15→13:48)
[2020-05-28 12:38] LABS: Basophils % (A) 1 %; Eosinophils # (A) 0.1 k/uL (0-0.7); Eosinophils % (A) 3 %; HCT 40.2 % (39.0-53.0); HGB 13.3 gm/dL (13.0-17.5); Lymphocytes # (A) 0.8 k/uL (1.0-4.8); Lymphocytes % (A) 16 %; MCH 32.7 pg (25.0-35.0); MCV 99.1 fL (80.0-100.0); Mean Platelet Volume 8.2; Monocytes # (A) 0.3 k/uL (0-1.0); Monocytes % (A) 6 %; Neutrophils # (A) 3.5 k/uL (1.3-7.7); Neutrophils % (A) 74 %; Platelet Count 128 k/uL (150-450); RBC 4.06 m/uL (4.30-5.90); RDW 12.2 % (11.5-15.5); WBC 4.8 k/uL (3.8-10.6)
[2020-05-28 12:45] LABS: INR 0.9 (<1.2); Partial Thromboplastin Time 22.6 sec (22.0-30.0); Prothrombin Time 9.7 sec (9.0-12.0)
--- NOTE | 2020-05-28 12:47 | CT ---
EXAMINATION TYPE: CT brain wo con DATE OF EXAM: 05/28/2020 COMPARISON: None HISTORY: Slurred speech CT DLP: 1090.[address] of the brain was performed. The ventricles, basal cisterns and sulci overlying the cerebral convexities demonstrate mild enlargem ent. Small remote insult left frontal parietal region. There is no evidence for intracranial hemorrhage or sulcal effacement. There is decreased attenuation about the periventricular white matter and deep white matter of both c erebral hemispheres, compatible with chronic small vessel ischemia. Differential diagnosis does inclu de demyelination. No mass effects are seen.No midline shift. Osseous calvarium is intact. If symptoms persist consider MRI. IMPRESSION: 1. Age related atrophic and chronic small vessel ischemic change without acute intracranial process s een at this time.
[2020-05-28 12:48] LABS: Albumin 4.5 g/dL (3.5-5.0); Calcium 10.4 mg/dL (8.4-10.2); Carbamazepine (Tegretol) 6.7 ug/mL; Magnesium 2.4 mg/dL (1.6-2.3); Potassium 4.6 mmol/L (3.5-5.1); Total Bilirubin 0.5 mg/dL (0.2-1.3); Total Protein 7.4 g/dL (6.3-8.2)
--- NOTE | 2020-05-28 12:51 | XR ---
EXAMINATION TYPE: XR chest 2V DATE OF EXAM: 05/28/2020 COMPARISON: NONE HISTORY: Chest pain TECHNIQUE: Frontal and lateral views of the chest are obtained. FINDINGS: There is no focal air space opacity. No evidence for pneumothorax. No pleural effusion. The cardiac silhouette size is within normal limits. The osseous structures are grossly intact. IMPRESSION: 1. No acute cardiopulmonary process.
[2020-05-28 13:02] LABS: Lithium 2.5 mmol/L
[2020-05-28] MEDS ORDERED: NALOXONE 0.4 MG/ML 1 ML VIAL IV PRN ×2 (13:55→14:41)
[2020-05-28] MEDS ORDERED: ACETAMINOPHEN TAB 325 MG TAB PO PRN (14:41)
[2020-05-28] MEDS: SODIUM CHLORIDE 0.9% 1,000 ML IV SCH ×2 (16:22→22:37)
[2020-05-28] MEDS: HEPARIN SODIUM,PORCINE 5,000 UNIT/ML 1 ML VIAL SQ SCH ×2 (16:23→22:38)
--- NOTE | 2020-05-28 17:09 | P.HPIM ---
<Damien Rodríguez - Last Filed: 05/28/20 15:49> History of Present Illness H&P Date: 05/28/20 Chief Complaint: confusion, difficulty with words, unsteady History of Presenting Illness: Patient is a 60-year-old male with a past medical history of seizure disorder and bipolar disorder whom presented to [facility] with a chief complaint of confusion, difficulty with words, unsteady gait,, tremors, and weakness. Patient's partner at bedside reports he first noticed the tremors, uncoordinated balance and episodic difficulties with finding words one week ago. He reports that over the past week these symptoms have significantly worsened and he has fallen multiple times and could not even hold a cup to drink out of. Pt reports that he has been felling "off" and has had a difficult time with his memory and thought process, feeling weak and unsteady, having difficulty with his words, having double vision and seeing orbs of light in his vision, and has had a decreased appetite and has lost 10 lbs. Pt states that he has been taking his medications as prescribed and that the only medication changes he has had was the addition of the lisinopril.5 mg daily and this was added on in March. Patient denied having any lightheadedness, dizziness, changes in hearing or tinnitus, chest pain or palpitations, shortness of breath, dyspnea with exertion, abdominal pain, nausea, vomiting, or any changes with bowel function. Upon assessment patient was noted to have involuntary loss of bladder and was unaware that he had urinated on himself. Patient was seen and fully evaluated in the emergency department and admitted under our services after being found to have lithium toxicity with an elevated lithium level of 2.5. Carbamazepine levels normal findings at 6.7 and TSH normal findings at 2.350. BMP revealed hy ponatremia with sodium of 134 and acute kidney injury with BUN 24, creatinine 1.49, and a GFR of 50. Hypermagnesemia with magnesium of 2.4 and hypercalcemia with calcium of 10.4. CT head negative for acute intracranial process, showing age relate atrophic and chronic small vessel ischemic changes. Chest x-ray negative for acute cardiopulmonary process. EKG revealing normal sinus rhythm with no noted T wave, ST abnormalities, or QT prolongation. Called and spoke with Jyotsna from Poison Control whom recommended to monitor EKG for QTC prolongation, continue fluid hydration with 0.9% NS at 150 mL/hour, obtain a STAT UDS, frequent neuro checks, seizure precautions, and monitor lithium levels every 6 hours 24 hours or until normalized. Review of systems: Pertinent positives and negatives as discussed in HPI, a complete review of systems was performed and all other systems are negative. Physical exam: General: non toxic, patient slow to respond and sluggish, but showing no signs of acute distress at this time, appears at stated age. Derm: warm, excessively dry skin Head: Atraumatic, normocephalic, symmetric Eyes: Pupils PERRLA 3 mm to 1 mm. EOM's intact, no lid lag, anicteric sclera. Mouth: No lip lesion, mucus membranes dry and pasty. Cardiovascular: Normal S1-S2 with regular rate and rhythm, no murmur, rub or gallop, positive posterior tibial pulses bilaterally, cap refill less than 2 sec onds. Lungs: Respirations even, regular, and unlabored on room air. Lungs clear to auscultation bilaterally. No adventitious lung sounds noted including wheezing, rhonchi, rales, or crackles. No accessory muscle usage. Abdominal: Soft, nontender to palpation, no guarding, no appreciable organomeg tristen Ext: No gross muscle atrophy, no edema, no contractures Neuro: GCS 15. Slow to respond and speech clear but patient does have an anatomic aphasia. CN II-XII grossly intact. He was positive for bilateral lower extremity weakness, and positive for intention tremors and muscle fasciculations. Psych: Alert to person, place, time, and situation, appropriate affect Plan of care: Chronic [place] toxicity -Continuous telemetry monitoring -Repeat EKG in a.m. and watch for QT/QTC prolongation. -Vigorous fluid hydration with 2 L bolus 0.9% normal saline followed by maintenance infusion at 150 mL's per hour. -Repeat lithium levels every 6 hours 24 hours or until normalized. -Hold MINOR inhibitor, lisinopril, secondary to its potential to cause dehydration and renal impairment which can precipitate/increased risk for lithium toxicity. -Seizure precautions, aspiration precautions, and fall precautions. -Neuro checks every 4 hours and as needed. Acute kidney injury likely secondary to dehydration -BUN 24, creatinine 1.49, and a GFR of 50. -Hold lisinopril process secondary to a KCI as well as lithium toxicity. -Continue fluid rehydration. Seizure Disorder -Seizure precautions, aspiration precautions and fall precautions in place. -Continue daily medication management with carbamazepine. -Carbamazepine levels are therapeutic at 6.7. Bipolar Disorder -Continue daily medication management with clonazepam and duloxetine. Hold lithium secondary to lithium toxicity. CODE STATUS: Full code DVT prophylaxis: heparin Discussed with: Patient and his partner. Anticipated discharge date: Clinical course to determine. Anticipated discharge place: Home A total of 45 minutes was spent on the care of this complex patient more than 50% of the time was spent in counseling and care coordination. . Past Medical History Past Medical History: Cancer, Eye Disorder, Pneumonia, Seizure Disorder Additional Past Medical History / Comment(s): no seizure in the past 5 years, murmur, skin cancer History of Any Multi-Drug Resistant Organisms: None Reported Past Surgical History: Hernia Repair, Joint Replacement Additional Past Surgical History / Comment(s): Bilateral total hip arthroplasties, bilateral total knee arthroplasties each with a revision., hernia at 9 weeks, back fusion L5-S1 05/21/17 Past Anesthesia/Blood Transfusion Reactions: No Reported Reaction Past Psychological History: ADD/ADHD, Bipolar, Panic Disorder Smoking Status: Current every day smoker Past Alcohol Use History: None Reported Past Drug Use History: None Reported - Past Family History Sister(s) Family Medical History: Cancer Additional Family Medical History / Comment(s): breast Father Family Medical History: Cancer Additional Family Medical History / Comment(s): bladder and colon Medications and Allergies Home Medications Medication Instructions Recorded Confirmed Type DULoxetine HCL [Cymbalta] 60 mg PO DAILY 05/14/17 05/28/20 History QUEtiapine FUMARATE [SEROquel] 600 mg PO HS 05/14/17 05/28/20 History clonazePAM [KlonoPIN] 1 mg PO HS 05/14/17 05/28/20 History clonazePAM [KlonoPIN] 2 mg PO DAILY 05/14/17 05/28/20 History carBAMazepine [TEGretol XR] 400 mg PO BID 05/21/17 05/28/20 History Cyclobenzaprine [Flexeril] 20 mg PO HS 05/28/20 05/28/20 History DULoxetine HCL [Cymbalta] 30 mg PO DAILY 05/28/20 05/28/20 History [place] Carbonate [[place] 600 mg PO BID 05/28/20 05/28/20 History Carbonate ER] Sildenafil Citrate 100 mg PO DAILY PRN 05/28/20 05/28/20 History Allergies Allergy/AdvReac Type Severity Reaction Status Date / Time No Known Allergies Allergy Unverified 05/28/20 12:55 Physical Exam Vitals: Vital Signs Temp Pulse Resp BP Pulse Ox 05/28/20 14:22 64 18 138/72 98 05/28/20 13:25 61 16 125/77 98 05/28/20 12:24 60 18 143/83 100 05/28/20 11:57 98.5 F 71 18 139/83 98 Intake and Output 05/27/20 05/28/20 05/28/20 22:59 06:59 14:59 Other: Weight 81.284 kg Results CBC & Chem 7: 05/28/20 12:26 05/28/20 12:26 Labs: Abnormal Lab Results - Last 24 Hours (Table) 05/28/20 05/28/20 Range/Units 12:26 12:26 RBC 4.06 L (4.30-5.90) m/uL Plt Count 128 L (150-450) k/uL Lymphocytes # 0.8 L (1.0-4.8) k/uL Sodium 134 L (137-145) mmol/L BUN 24 H (9-20) mg/dL Creatinine 1.49 H (0.66-1.25) mg/dL Glucose 102 H (74-99) mg/dL Calcium 10.4 H (8.4-10.2) mg/dL Magnesium 2.4 H (1.6-2.3) mg/dL Alkaline Phosphatase 207 H (38-126) U/L [place] 2.5 H* mmol/L <Asuncion Dixon - Last Filed: 05/28/20 17:36> History of Present Illness Patient seen and examined independently. Patient was also seen by Damien Rodríguez NP and case was discussed. I am in agreement with subjective, physical exam, assessment and plan as written above and amended below. Seen in the ED with his significant other. He has chronic back pain which is unchagned. He is due to get injections which he gets every 4 months.He denies fevers and chills. He was started on lisinopril in March for BP. He does not see an psychiatrist and his primary care [employer] is dosing his cymbalta, seroquel, and lithium. His partner has HIV undetertable levels for the last 5 years and well controlled, no recent intercourse. General: non toxic, no distress, appears at stated age Derm: warm, dry, tatoos over lumbar spine and bilateral shins Head: atraumatic, normocephalic, symmetric Eyes: EOMI, no lid lag, anicteric sclera Mouth: no lip lesion, mucus membranes moist Cardiovascular: S1S2 reg, no murmur, positive posterior tibial pulse bilateral, Lungs: CTA bilateral, no rhonchi, no rales , no accessory muscle use Ext: no gross muscle atrophy, no edema, no contractures Neuro: CN II-XI grossly intact, Slowed thinking and difficulty with word finding, Muslce stregth 4/5 in b/l LE, No spinous precess tenderness on exam. + Fasiculations, + tremors with interntion Psych: Alert, oriented but slowed thinking, appropriate affect Additional Diagnosis: Thrombocytopenia, mild and chronic - follow CBC Hypercalcemia - mild and likely due to dehydration - repeat in AM - If continues to be evelated will need parathyroid eval with lithium toxicity Physical Exam Osteopathic Statement: *. No significant issues noted on an osteopathic structural exam other than those noted in the History and Physical/Consult. Vitals: Vital Signs Temp Pulse Pulse Resp BP BP Pulse Ox 05/28/20 16:20 97.8 F 94 16 155/74 100 05/28/20 14:22 64 18 138/72 98 05/28/20 13:25 61 16 125/77 98 05/28/20 12:24 60 18 143/83 100 05/28/20 11:57 98.5 F 71 18 139/83 98 Intake and Output 05/28/20 05/28/20 05/28/20 06:59 14:59 22:59 Other: Weight 81.284 kg 81.284 kg Results CBC & Chem 7: 05/28/20 12:26 05/28/20 12:26 Labs: Abnormal Lab Results - Last 24 Hours (Table) 05/28/20 05/28/20 Range/Units 12:26 12:26 RBC 4.06 L (4.30-5.90) m/uL Plt Count 128 L (150-450) k/uL Lymphocytes # 0.8 L (1.0-4.8) k/uL Sodium 134 L (137-145) mmol/L BUN 24 H (9-20) mg/dL Creatinine 1.49 H (0.66-1.25) mg/dL Glucose 102 H (74-99) mg/dL Calcium 10.4 H (8.4-10.2) mg/dL Magnesium 2.4 H (1.6-2.3) mg/dL Alkaline Phosphatase 207 H (38-126) U/L [place] 2.5 H* mmol/L
[2020-05-28 20:50] LABS: Amphetamine Screen,Urine Not Detected (NotDetected); Barbiturate Screen,Urine Not Detected (NotDetected); Benzodiazepines Screen,Urine Detected (NotDetected); Cocaine Screen,Urine Not Detected (NotDetected); Methadone Screen, Urine Not Detected (NotDetected); Opiate Screen,Urine Not Detected (NotDetected); Oxycodone Screen, Urine Not Detected (NotDetected); Phencyclidine Screen,Urine Not Detected (NotDetected); Tricyclic Antidepressant,Urine Detected (NotDetected); Urn Cannabinoid Scrn Not Detected (NotDetected)
[2020-05-28] MEDS ORDERED: clonazePAM 1 MG TAB PO SCH (21:00)
[2020-05-28] MEDS: carBAMazepine 400 MG TAB.ER.12H PO SCH (22:38)
[2020-05-29] MEDS: SODIUM CHLORIDE 0.9% 1,000 ML IV SCH ×3 (04:57→20:52)
[2020-05-29 07:32] LABS: Basophils % (A) 1 %; Eosinophils # (A) 0.1 k/uL (0-0.7); Eosinophils % (A) 4 %; HGB 11.9 gm/dL (13.0-17.5); Lymphocytes # (A) 0.8 k/uL (1.0-4.8); Lymphocytes % (A) 23 %; MCH 33.3 pg (25.0-35.0); MCHC 33.1 g/dL (31.0-37.0); MCV 100.4 fL (80.0-100.0); Mean Platelet Volume 8.8; Monocytes # (A) 0.2 k/uL (0-1.0); Monocytes % (A) 6 %; Neutrophils # (A) 2.1 k/uL (1.3-7.7); Neutrophils % (A) 64 %; Platelet Count 103 k/uL (150-450); RBC 3.58 m/uL (4.30-5.90); RDW 12.3 % (11.5-15.5); WBC 3.2 k/uL (3.8-10.6)
[2020-05-29 08:14] LABS: ALT 23 U/L (4-49); AST 21 U/L (17-59); African American GFR (CKD) 78 (>60 ml/min/1.73 sqM); Albumin 3.5 g/dL (3.5-5.0); Albumin/Globulin Ratio 1.5; Alkaline Phosphatase 191 U/L (38-126); Anion Gap 6 mmol/L; Blood Urea Nitrogen 16 mg/dL (9-20); Calcium 9.4 mg/dL (8.4-10.2); Carbon Dioxide 19 mmol/L (22-30); Chloride 111 mmol/L (98-107); Globulin 2.3 g/dL; Glucose 99 mg/dL (74-99); Non-African American GFR(CKD) 68 (>60 ml/min/1.73 sqM); Potassium 4.5 mmol/L (3.5-5.1); Sodium 136 mmol/L (137-145); Total Bilirubin 0.4 mg/dL (0.2-1.3); Total Protein 5.8 g/dL (6.3-8.2)
[2020-05-29] MEDS: HEPARIN SODIUM,PORCINE 5,000 UNIT/ML 1 ML VIAL SQ SCH ×3 (08:32→22:59)
[2020-05-29] MEDS: DULoxetine HCL 30 MG CAPSULE.DR PO SCH (08:32)
[2020-05-29] MEDS: carBAMazepine 400 MG TAB.ER.12H PO SCH ×2 (08:32→20:51)
[2020-05-29 08:33] LABS: Lithium 1.9 mmol/L
[2020-05-29] MEDS ORDERED: clonazePAM 1 MG TAB PO SCH (09:00)
[2020-05-29] MEDS ORDERED: DULoxetine HCL 60 MG CAPSULE.DR PO SCH (09:00)
--- NOTE | 2020-05-29 10:45 | P.PN ---
Subjective Progress Note Date: 05/29/20 Principal diagnosis: Unintentional lithium toxicity Hospital Course: Patient is a 60-year-old male with a past medical history of seizure disorder and bipolar disorder whom presented to [facility] with a chief complaint of confusion, difficulty with words, unsteady gait,, tremors, and weakness. Patient's partner at bedside reported he first noticed the tremors, uncoordinated balance and episodic difficulties with finding words one week ago. He reports that over the past week these symptoms have significantly worsened and he has fallen multiple times and could not even hold a cup to drink out of. Pt reported that he had been felling "off" and has had a difficult time with his memory and thought process, feeling weak and unsteady, having difficulty with his words, having double vision and seeing orbs of light in his vision, and has had a decreased appetite and has lost 10 lbs. Pt states that he has been taking his medications as prescribed and that the only medication changes he has had was the addition of the lisinopril.5 mg daily and this was added on in March. Patient denied having any lightheadedness, dizziness, changes in hearing or tinnitus, chest pain or palpitations, shortness of breath, dyspnea with exertion, abdominal pain, nausea, vomiting, or any changes with bowel function. Upon assessment patient was noted to have involuntary loss of bladder and was unaware that he had urinated on himself. Patient was seen and fully evaluated in the emergency department and admitted under our services after being found to have lithium toxicity with an elevated lithium level of 2.5. Carbamazepine levels normal findings at 6.7 and TSH normal findings at 2.350. BMP revealed hyponatremia with sodium of 134 and acute kidney injury with BUN 24, creatinine 1.49, and a GFR of 50. Hypermagnesemia with magnesium of 2.4 and hypercalcemia with calcium of 10.4. CT head negative for acute intracranial process, showing age relate atrophic and chronic small vessel ischemic changes. Chest x-ray negative for acute cardiopulmonary process. EKG revealing normal sinus rhythm w ith no noted T wave, ST abnormalities, or QT prolongation. Poison Control was contacted and recommended continue to monitor EKG for QTC prolongation, continue fluid hydration with 0.9% normal saline, continue neuro checks, seizure precautions, and monitor lithium levels every 6 hours 24 hours or until normalized. Physical exam: Patient was seen and fully evaluated at the bedside this morning. He continues to have some bilateral lower extremity weakness, intention tremors as well as muscle fasciculations and involuntary loss of urine. He is alert and oriented to person, place, time, and situation. His speech is still slightly slow to respond but remains clear. Anatomic aphasia has improved and patient reports double vision has subsided and he is now back to his baseline vision without glasses. Patient denies having any complaints at this time including headache, lightheadedness, dizziness, tinnitus, chest pain or palpitations, shortness of breath, abdominal pain, nausea, or experiencing any numbness/tingling in extr emities. Morning labs reveal improvement of hyponatremia from previous 134 up to 136, resolution of AK I with BUN of 16 and creatinine of 1.16 and GFR of 68. Liver profile revealed elevation in alkaline phosphatase of 191, improved from yesterday's results of 207. General: non toxic, patient slow to respond and sluggish, but showing no signs of acute distress at this time, appears at stated age. Derm: warm, excessively dry skin Head: Atraumatic, normocephalic, symmetric Eyes: Pupils PERRLA 3 mm to 1 mm. EOM's intact, no lid lag, anicteric sclera. Mouth: No lip lesion, mucus membranes dry and pasty. Cardiovascular: Normal S1-S2 with regular rate and rhythm, no murmur, rub or gallop, positive posterior tibial pulses bilaterally, cap refill less than 2 seconds. Lungs: Respirations even, regular, and unlabored on room air. Lungs clear to auscultation bilaterally. No adventitious lung sounds noted including wheezing, rhonchi, rales, or crackles. No accessory muscle usage. Abdominal: Soft, nontender to palpation, no guarding, no appreciable organomegaly Ext: No gross muscle atrophy, no edema, no contractures Neuro: GCS 15. Slow to respond, speech is clear. CN II-XII grossly intact. He was positive for bilateral upper and lower extremity weakness with strength 4/5 for BUE and BLE, Positive for intention tremors and muscle fasciculations. Psych: Alert to person, place, time, and situation, appropriate affect Plan of care: Chronic [place] toxicity -Continuous telemetry monitoring -Repeat EKG remains unchanged with QTC of . -Continue fluid hydration with 0.9% NS. -Repeat lithium levels every 6 hours 24 hours or until normalized. Currently improving with morning level of 1.9. -Hold MINOR inhibitor, lisinopril, secondary to its potential to cause dehydration and renal impairment which can precipitate/increase risk for lithium toxicity. -Seizure precautions, aspiration precautions, and fall precautions to remain in place. -Neuro checks every 4 hours and as needed. -Consult placed for PT/OT -Consult to psychiatry Acute kidney injury likely secondary to dehydration, resolved Seizure Disorder -Seizure precautions, aspiration precautions and fall precautions in place. -Continue daily medication management with carbamazepine. -Carbamazepine levels are therapeutic at 6.7. Bipolar Disorder -Continue daily medication management with clonazepam and duloxetine. Hold lithium secondary to lithium toxicity. -Psychiatry consulted for medication management. Chronic Thrombocytopenia, stable -Platelet count 103,000. CODE STATUS: Full code DVT prophylaxis: heparin Discussed with: Patient and RN. Anticipated discharge date: Clinical course to determine. Anticipated discharge place: Home A total of 45 minutes was spent on the care of this complex patient more than 50% of the time was spent in counseling and care coordination. . Objective - Vital Signs Vital signs: Vital Signs Temp 97.9 F 05/29/20 08:32 Pulse 69 05/29/20 08:32 Resp 16 05/29/20 08:32 BP 152/74 05/29/20 08:32 Pulse Ox 100 05/29/20 08:32 Intake & Output 05/28/20 05/29/20 05/29/20 18:59 06:59 18:59 Weight 81.284 kg Other: Voiding Method Urinal Urinal Incontinent Incontinent # Voids 4 - Labs CBC & Chem 7: 05/29/20 06:07 05/29/20 06:07 Labs: Abnormal Lab Results - Last 24 Hours (Table) 05/28/20 05/28/20 05/28/20 Range/Units 12:26 12:26 18:17 WBC (3.8-10.6) k/uL RBC 4.06 L (4.30-5.90) m/uL Hgb (13.0-17.5) gm/dL Hct (39.0-53.0) % MCV (80.0-100.0) fL Plt Count 128 L (150-450) k/uL Lymphocytes # 0.8 L (1.0-4.8) k/uL Sodium 134 L (137-145) mmol/L Chloride (98-107) mmol/L Carbon Dioxide (22-30) mmol/L BUN 24 H (9-20) mg/dL Creatinine 1.49 H (0.66-1.25) mg/dL Glucose 102 H (74-99) mg/dL Calcium 10.4 H (8.4-10.2) mg/dL Magnesium 2.4 H (1.6-2.3) mg/dL Alkaline Phosphatase 207 H (38-126) U/L Total Protein (6.3-8.2) g/dL U Tricyclic Antidepress (NotDetected) U Benzodiazepines Scrn (NotDetected) [place] 2.5 H* 2.3 H* mmol/L 05/28/20 05/29/20 05/29/20 Range/Units 20:15 00:08 06:07 WBC 3.2 L (3.8-10.6) k/uL RBC 3.58 L (4.30-5.90) m/uL Hgb 11.9 L (13.0-17.5) gm/dL Hct 36.0 L (39.0-53.0) % MCV 100.4 H (80.0-100.0) fL Plt Count 103 L (150-450) k/uL Lymphocytes # 0.8 L (1.0-4.8) k/uL Sodium (137-145) mmol/L Chloride (98-107) mmol/L Carbon Dioxide (22-30) mmol/L BUN (9-20) mg/dL Creatinine (0.66-1.25) mg/dL Glucose (74-99) mg/dL Calcium (8.4-10.2) mg/dL Magnesium (1.6-2.3) mg/dL Alkaline Phosphatase (38-126) U/L Total Protein (6.3-8.2) g/dL U Tricyclic Antidepress Detected H (NotDetected) U Benzodiazepines Scrn Detected H (NotDetected) [place] 2.1 H* mmol/L 05/29/20 Range/Units 06:07 WBC (3.8-10.6) k/uL RBC (4.30-5.90) m/uL Hgb (13.0-17.5) gm/dL Hct (39.0-53.0) % MCV (80.0-100.0) fL Plt Count (150-450) k/uL Lymphocytes # (1.0-4.8) k/uL Sodium 136 L (137-145) mmol/L Chloride 111 H (98-107) mmol/L Carbon Dioxide 19 L (22-30) mmol/L BUN (9-20) mg/dL Creatinine (0.66-1.25) mg/dL Glucose (74-99) mg/dL Calcium (8.4-10.2) mg/dL Magnesium (1.6-2.3) mg/dL Alkaline Phosphatase 191 H (38-126) U/L Total Protein 5.8 L (6.3-8.2) g/dL U Tricyclic Antidepress (NotDetected) U Benzodiazepines Scrn (NotDetected) [place] 1.9 H* mmol/L
--- NOTE | 2020-05-29 13:40 | P.CN ---
Psychiatric Consult - . Consult date: 05/29/20 Consult:: 05/29/20 13:31 IDENTIFYING DATA: This patient is a 60-year-old male who currently lives with his in a house has no kids and is unemployed. REASON FOR REFERRAL: Psychiatry was consulted for lithium toxicity and medicati on management. HISTORY OF PRESENT ILLNESS: The patient presented to the hospital on 05/28 for evaluation of tremors weakness weight loss and slurred speech which has been ongoing for about one week. According to ER report patient has been having poor oral intake and was found dehydrated and admitted to the medical floors also found to have a lithium level of 2.5 on admission. Patient also had a carbamazepine level of 6.7. Patient had a UDS which was positive for TCAs and benzodiazepines. Patient had a computed tomography scan of his head which showed no acute changes. Patient was seen at the bedside speaking with his and was agreeable to speak to news writer alone. Patient appeared to have word finding difficulties and poor concentration during conversation. He was attempting to answer questions as appropriately as he could however was unable to provide very good history. He states that he has been concerned about his lithium levels and believed that he was taking to overdose. He states that he was developing tremors in his hands which has been currently improving since being in the hospital. He was fairly pleasant and cooperative. He claims that his mood is "better" and denies any current depression. She states that his sleep has been poor only sleeping 2-3 hours a night. He claims that he was seeing "orbs" however is not seeing them any longer. At this time patient denies any suicidal or homical ideations, intent or plan. Patient denies any auditory hallucinations and denies any paranoia or delusions. Patients admits to using cigarettes daily and denies any other recreational drug use. Of note patient was alert and oriented 1 to his name only and believed that it was "Friday in 2004" and believes that he was in [facility] and has poor memory and poor concentration. PAST PSYCHIATRIC HISTORY: Patient has a a history of bipolar disorder. Patient was previously on lithium, Tegretol, Cymbalta, Klonopin. Patient denies any previous psychiatric hospitalizations. Patient denies any psychiatric outpatient follow-up and states that he follows up with his primary care physician. Patient denies any history of suicide attempts in the past. PAST MEDICAL HISTORY: Cancer, eye disorder, seizure disorder. ALLERGIES: as per EMR. CHEMICAL DEPENDENCY HISTORY: as per HPI. FAMILY PSYCHIATRIC/SUBSTANCE USE HISTORY: denies SOCIAL HISTORY: Patient was born and raised in [place]. He states that he completed college and high school. 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 He claims currently he is unemployed. He denies any legal history. He is currently to his lives in a house has no kids. MENTAL STATUS EXAM: General Appearance: Patient appears to be stated age is alert, with poor concentration and attending to cooperate pleasant. Patient appears to have fair hygiene and grooming wearing hospital gown with poor eye contact. Behavior: Patient is calmly lying in bed without any agitated behavior. Poor concentration. Speech: Patient's speech is fluent and nonpressured. Mood/Affect: Patient reports their mood is "better", affect is congruent Suicidality/Homicidality: Patient denies having any suicidal or homicidal ideation intent or plan. Perceptions: Patient denies any visual hallucinations and denies any auditory hallucinations Though content/process: Poor concentration, no delusions or paranoia. Illogical at times. Memory and concentration: AOX1, to his name only. He believes that he is in [facility] and does not know the current president. He does not know today's date. Cannot spell "WORLD" backwards. 0 out of 3 words recalled after 5 minutes. Judgment and insight: poor IMPRESSIONS: Delirium, likely etiology secondary to medications (lithium toxicity) Bipolar disorder Nicotine dependence PLAN: -At this time patient DOES NOT meet criteria for inpatient psychiatric admission. -Delirium precautions recommended with patient including - avoiding use of narc otics and INVERTED BLOCK OPERATOR sedatives, limit anticholinergic medications when possible, frequent re-orientation, minimize use of restraints, open window shades during the day and close them at night -Would recommend the following medication changes/additions: Added Seroquel 50 mg daily at bedtime for mood stabilization/insomnia. Continue holding lithium and continued trending lithium levels as they have been gradually improving. Continue with hydration. Decreased Klonopin to 1 mg twice a day for anxiety. Continue current dose of Cymbalta and Tegretol. -sheet metal worker apprentice to provide patient with outpatient mental health/psychiatry resources for appropriate follow up upon discharge -Will continue to follow along -Please contact with any questions.
[2020-05-29 15:58] LABS: HIV 2 AB Non-Reactive (Non-Reactive); HIV AB P24 Non-Reactive (Non-Reactive); HIV P24 AG Non-Reactive (Non-Reactive)
[2020-05-29] MEDS: QUEtiapine 50 MG TAB PO SCH (20:51)
[2020-05-29] MEDS: clonazePAM 1 MG TAB PO SCH (20:51)
[2020-05-30] MEDS: SODIUM CHLORIDE 0.9% 1,000 ML IV SCH ×2 (05:54→17:30)
[2020-05-30 07:53] LABS: HCT 38.4 % (39.0-53.0); HGB 12.6 gm/dL (13.0-17.5); MCH 32.8 pg (25.0-35.0); MCHC 32.9 g/dL (31.0-37.0); MCV 99.9 fL (80.0-100.0); Mean Platelet Volume 8.2; Platelet Count 116 k/uL (150-450); RBC 3.84 m/uL (4.30-5.90); RDW 12.8 % (11.5-15.5); WBC 3.4 k/uL (3.8-10.6)
[2020-05-30 08:03] LABS: African American GFR (CKD) 88 (>60 ml/min/1.73 sqM); Anion Gap 9 mmol/L; Blood Urea Nitrogen 11 mg/dL (9-20); Calcium 9.8 mg/dL (8.4-10.2); Carbon Dioxide 18 mmol/L (22-30); Chloride 111 mmol/L (98-107); Glucose 109 mg/dL (74-99); Non-African American GFR(CKD) 76 (>60 ml/min/1.73 sqM); Potassium 4.2 mmol/L (3.5-5.1); Sodium 138 mmol/L (137-145)
[2020-05-30] MEDS: DULoxetine HCL 30 MG CAPSULE.DR PO SCH (08:36)
[2020-05-30] MEDS: carBAMazepine 400 MG TAB.ER.12H PO SCH ×2 (08:37→21:25)
[2020-05-30] MEDS: HEPARIN SODIUM,PORCINE 5,000 UNIT/ML 1 ML VIAL SQ SCH ×2 (08:37→17:29)
[2020-05-30] MEDS: clonazePAM 1 MG TAB PO SCH ×2 (08:37→21:25)
[2020-05-30 09:07] LABS: Lithium 1.1 mmol/L
--- NOTE | 2020-05-30 12:56 | P.PN ---
Progress Note - Text Progress Note Date: 05/30/20 Interval History: Patient was seen today for psychiatric follow-up regarding patient's delirium. Patient appears to be mildly more confused today and continues to have bilateral upper extremity tremors. Patient continues to have word finding difficulties and poor concentration during conversation. He looked over several times towards his in the room when engineering technical writer asked him questions. Patient was fairly pleasant and attempting to cooperate. He was oriented to his name, his 's name however did not know that he was in the hospital. Patient does not know today's date. He states that he was able to sleep better last night. He claims to have a fair appetite. At this time patient denies any suicidal or homical ideations, intent or plan. Patient denies any auditory, visual hallucinations and denies any paranoia or delusions. Mental Status Exam: General Appearance: Patient appears to be stated age is alert, with poor concentration and attempting to cooperate, fairly pleasant. Patient appears to have fair hygiene and grooming wearing hospital gown. Behavior: Patient is calmly lying in bed without any agitated behavior. Poor concentration. Speech: Patient's speech is fluent and nonpressured. Mood/Affect: Patient reports their mood is "not good", affect is congruent Suicidality/Homicidality: Patient denies having any suicidal or homicidal ideation intent or plan. Perceptions: Patient denies any visual hallucinations and denies any auditory hallucinations Though content/process: Poor concentration, no delusions or paranoia. More logical today. Word finding difficulties. Memory and concentration: AOX1, to his name only. He does not know his location or today's date. does not know the current president. Cannot spell "WORLD" backwards. Judgment and insight: poor Assessment Delirium, likely etiology secondary to medications (lithium toxicity) Bipolar disorder Nicotine dependence Plan: -At this time patient DOES NOT meet criteria for inpatient psychiatric admission. -Delirium precautions recommended with patient including - avoiding use of n arcotics and LASER MACHINE OPERATOR sedatives, limit anticholinergic medications when possible, frequent re-orientation, minimize use of restraints, open window shades during the day and close them at night -Would recommend the following medication changes/additions: Continue with Seroquel 50 mg daily at bedtime for mood stabilization/insomnia. Continue holding lithium dose. We'll continue to trend lithium levels as they have been gradually improving, last lithium level noted to be 1.1 this morning. Continue with hydration and frequent reorientation. Continue with Klonopin to 1 mg twice a day for anxiety. Continue current dose of Cymbalta and Tegretol. -TSH noted to be within normal limits. Ordered B12 and folic acid and also syphilis. Ordered urine analysis. -Appreciate neurology recommendations. -forest and conservation worker to provide patient with outpatient mental health/psychiatry resources for appropriate follow up upon discharge -Will continue to follow along -Please contact with any questions.
--- NOTE | 2020-05-30 13:00 | P.PN ---
Subjective Progress Note Date: 05/30/20 Principal diagnosis: Unintentional lithium toxicity Hospital Course: Patient is a 60-year-old male with a past medical history of seizure disorder and bipolar disorder whom presented to [facility] with a chief complaint of confusion, difficulty with words, unsteady gait,, tremors, and weakness. Patient was found to have lithium toxicity with an elevated lithium level of 2.5 and was admitted under our services for lithium toxicity. Additional labs/imaging completed revealing Carbamazepine levels normal findings at 6.7 and TSH normal findings at 2.350. BMP revealed hyponatremia with sodium of 134 and acute kidney injury with BUN 24, creatinine 1.49, and a GFR of 50. Hypermagnesemia with magnesium of 2.4 and hypercalcemia with calcium of 10.4. CT head negative for acute intracranial process, showing age relate atrophic and chronic small vessel ischemic changes. Chest x-ray negative for acute cardiopulmonary process. EKG revealing normal sinus rhythm with no noted T wave, ST abnormalities, or QT prolongation. Poison Control was contacted and following along with patient. Psychiatry and Neurology on board. HIV testing completed negative findings. Syphilis testing ordered and pending results. Physical exam: Patient was seen and fully evaluated at the bedside this morning. Upon assessment patient was noted to have increased confusion, continued slowness to respond and again with moderate anatomic aphasia, as well as significantly increased tremors and fasciculation when compared to evaluation yesterday ousmane reynolds. Patient was able to state his name but states that it is 2011 and that he did not know why he was in the hospital. Pt was holding the phone to his mouth blowing into the phone and when asked why he was doing this pt states the nurses told me I need to blow into this. Pt reoriented that he is supposed to blow into incentive spirometer, but did not appear to understand and was not able to res augustine. Patient was pleasant and able to follow commands, lower extremity weakness seems to be slowly improving and patient continues to deny having any double vision. RN reports patient continues to be incontinent of urine and remains unaware that he has even urinated on himself. Patient denies having any complaints of pain or discomfort. Pt's , Adria, was at bedside. He reports significant concerns due to worsening of confusion and tremors. Pt is unable to tell us his address or his wedding anniversary. Adria reports that Brendan "is usually sharp as a whip." Labs reveal continued pancytopenia, otherwise no significant abnormalities. [place] level is now within therapeutic range at 1.1. General: non toxic, patient slow to respond and sluggish, but showing no signs of acute distress at this time, appears at stated age. Derm: warm, excessively dry skin Head: Atraumatic, normocephalic, symmetric Eyes: Pupils PERRLA. EOM's intact, no nystagmus, no lid lag, anicteric sclera. Mouth: No lip lesion, mucus membranes dry and pasty. Cardiovascular: Normal S1-S2 with regular rate and rhythm, no murmur, rub or gallop, positive posterior tibial pulses bilaterally, cap refill less than 2 seconds. Lungs: Respirations even, regular, and unlabored on room air. Lungs clear to auscultation bilaterally. No adventitious lung sounds noted including wheezing, rhonchi, rales, or crackles. No accessory muscle usage. Abdominal: Soft, nontender to palpation, no guarding, no appreciable organomegaly Musculoskeletal/extremities: No gross muscle atrophy, no edema, no contractures, patient denies neck or back pain. Neuro: GCS 14. Slow to respond, speech is clear. Anomic aphasia present CN II- XII grossly intact. He was positive for bilateral upper and lower extremity weakness with strength 4/5 for BUE and BLE, Positive for moderate confusion this morning with significant intention tremors and muscle fasciculations. Psych: Patient alert to person only. He is pleasant and cooperative. Acute delirium, unable to recognize normal daily objects. Patient was blowing into Plan of care: Chronic [place] toxicity -Continuous telemetry monitoring -EKG 2 normal sinus rhythm with no QT/QTC prolongation present. -Continue fluid hydration with 0.9% NS. -[place] levels now within therapeutic range at 1.1. -Seizure precautions, aspiration precautions, and fall precautions to remain in place. -Neuro checks every 4 hours and as needed. -Consult placed for PT/OT -Consult to psychiatry, psychiatry recommending for patient to continue Cymbalta and Tegretol, continue to hold lithium, and added Seroquel 50 mg nightly for mood stabilization/insomnia and decrease patient's Klonopin dose to 1 mg twice daily for his anxiety. Acute Delirium -Acute delirium likely secondary to lithium toxicity. Patient showing no signs of acute infection. -CT head negative for acute intracranial process, showing age relate atrophic and chronic small vessel ischemic changes. -Psychiatry following, appreciate further recommendations -Neurology consulted, appreciate further recommendations. -Continue neuro checks every 4 hours and as needed. -Continue fall precautions. -Syphilis testing to be completed Acute kidney injury likely secondary to dehydration, resolved Seizure Disorder -Seizure precautions, aspiration precautions and fall precautions in place. -Continue daily medication management with carbamazepine. -Carbamazepine levels are therapeutic at 6.7. Bipolar Disorder -Continue daily medication management with clonazepam and duloxetine. Hold lithium secondary to lithium toxicity. -Psychiatry consulted for medication management and recommended that patient continue Cymbalta and Tegretol and added Seroquel 50 mg nightly for his mood stabilization/insomnia as well as decrease patient's Klonopin to 1 mg twice daily for his anxiety. Pancytopenia -Pancytopenia with WBC count of 3.4, hemoglobin of 12.6, and platelet count of 116. -This appears to be chronic in nature and dating back as far as 2018. CODE STATUS: Full code DVT prophylaxis: heparin Discussed with: Patient and RN. Anticipated discharge date: Clinical course to determine. Anticipated discharge place: Home A total of 45 minutes was spent on the care of this complex patient more than 50% of the time was spent in counseling and care coordination. . Objective - Vital Signs Vital signs: Vital Signs Temp 97.6 F 05/30/20 07:00 Pulse 79 05/30/20 07:00 Resp 18 05/30/20 07:00 BP 153/81 05/30/20 07:00 Pulse Ox 100 05/30/20 07:00 Intake & Output 05/29/20 05/30/20 05/30/20 18:59 06:59 18:59 Other: Voiding Method Urinal Urinal Diaper Incontinent Incontinent Incontinent # Voids 3 1 # Bowel Movements 1 - Labs CBC & Chem 7: 05/30/20 07:40 05/30/20 07:40 Labs: Abnormal Lab Results - Last 24 Hours (Table) 05/30/20 05/30/20 Range/Units 07:40 07:40 WBC 3.4 L (3.8-10.6) k/uL RBC 3.84 L (4.30-5.90) m/uL Hgb 12.6 L (13.0-17.5) gm/dL Hct 38.4 L (39.0-53.0) % Plt Count 116 L (150-450) k/uL Chloride 111 H (98-107) mmol/L Carbon Dioxide 18 L (22-30) mmol/L Glucose 109 H (74-99) mg/dL
[2020-05-30 15:39] LABS: Appearance,Urine Clear (Clear); Bilirubin,Urine Negative (Negative); Blood,Urine Negative (Negative); Color,Urine Light Yellow; Glucose,Urine (UA) Negative (Negative); Ketones,Urine Negative (Negative); Leukocyte Esterase,Urine Negative (Negative); Nitrite,Urine Negative (Negative); PH, Urine 6.5 (5.0-8.0); Protein,Urine Negative (Negative); Specific Gravity,Urine 1.008 (1.001-1.035); Urobilinogen,Urine <2.0 mg/dL (<2.0)
[2020-05-30 20:49] LABS: Folate, Serum 4.8 ng/mL
[2020-05-30] MEDS: QUEtiapine 50 MG TAB PO SCH (21:25)
[2020-05-31] MEDS: HEPARIN SODIUM,PORCINE 5,000 UNIT/ML 1 ML VIAL SQ SCH ×3 (00:40→16:00)
[2020-05-31] MEDS: SODIUM CHLORIDE 0.9% 1,000 ML IV SCH (02:45)
[2020-05-31] MEDS: clonazePAM 1 MG TAB PO SCH ×2 (08:36→19:45)
[2020-05-31] MEDS: DULoxetine HCL 30 MG CAPSULE.DR PO SCH (08:36)
[2020-05-31] MEDS: carBAMazepine 400 MG TAB.ER.12H PO SCH ×2 (08:36→19:45)
[2020-05-31] MEDS ORDERED: amLODIPine 5 MG TAB PO STA (09:16)
[2020-05-31 10:41] LABS: HCT 35.8 % (39.6-50.0); HGB 11.6 g/dL (13.0-17.0); MCH 32.6 pg (27.0-32.0); MCHC 32.4 g/dL (32.0-37.0); MCV 100.6 fL (80.0-97.0); Mean Platelet Volume 11.6 fL (9.5-12.2); RBC 3.56 X 10*6/uL (4.40-5.60); RDW 12.4 % (11.5-14.5); WBC 4.11 X 10*3/uL (4.50-10.00)
[2020-05-31 10:51] LABS: African American GFR (CKD) 82.9 (60.0-200.0); Anion Gap 5.9 mmol/L (4.00-12.00); BUN/Creat Ratio 9.09 Ratio (12.00-20.00); Carbon Dioxide 23.1 mmol/L (21.6-31.8); Lithium 0.6 mmol/L (0.5-1.2); Magnesium 1.6 mg/dL (1.5-2.4); Non-African American GFR(CKD) 71.6 (60.0-200.0); Potassium 4.6 mmol/L (3.5-5.5)
[2020-05-31] MEDS ORDERED: CYANOCOBALAMIN 1,000 MCG/ML 1 ML VIAL IM ONE (12:19)
--- NOTE | 2020-05-31 12:26 | P.PN ---
Subjective Progress Note Date: 05/31/20 (delayed charting seen at 0945) Principal diagnosis: tremors and confusion Patient is a 60-year-old male for history of seizure disorder, bipolar, and hypertension who presented to the emergency department secondary to increased tremors and confusion. A thorough exam was done in the ER. Head CT demonstrated no acute process. Chest x-ray was negative. Laboratory analysis came back with a BUN of 24, creatinine 1.49, glucose 102, calcium 10.4, magnesium 2.4, urine drug screen positive for TCA and benzodiazepines, lithium level of 2.3, and platelets of 128. Patient was determined to have lithium toxicity. Poison control was contacted. They recommended conservative elvis gement with IV fluids, EKG monitoring, and supportive care. Patient was subsequently admitted. He has a history of chronic thrombocytopenia dating back to 2014. Patient seen and examined at bedside. He continues to be alert and oriented to person and place. He struggles with years. He states he is having some difficulty thinking. His tremors are better. General: Ill appearing, no distress, appears at stated age Derm: warm, dry Head: atraumatic, normocephalic, symmetric Eyes: EOMI, no lid lag, anicteric sclera Mouth: no lip lesion, mucus membranes moist Cardiovascular: S1S2 reg, no murmur, positive posterior tibial pulse bilateral, Lungs: CTA bilateral, no rhonchi, no rales , no accessory muscle use Abdominal: soft, nontender to palpation, no guarding, no appreciable organomegaly Ext: no gross muscle atrophy, no edema, no contractures Neuro: CN II-XI grossly intact, no focal neuro deficits, no tremors noted, finger to nose poor in left upper extremity, improved in right upper extremity Psych: Alert, oriented to self believes it is 2004. Perseverates on the as the year and month, appropriate affect Assessment and plan: [place] toxicity with prolonged neurologic symptoms -Await neurology recommendations, concern for long-term sequelae of lithium overdose with continued cerebellar dysfunction and confusion. -Appreciate psychiatry recommendations -Continue to hold lithium - TSH normal - No ekg changes noted Toxic Metabolic Encephalopathy -Related to above Pancytopenia with chronic thrombocytopenia - suspect related to acute illness - follow CBC - Repeat 1 week after discharge. Hypertension, accelerated -Patient was taken off lisinopril at admission secondary to decreased renal clearance of lithium -Follow blood pressures -Start Norvasc 5 mg daily Hyperchloremic metabolic acidosis -Transitioned off IV fluids -Repeat labs in a.m. Bipolar disorder -Psych recommendations appreciated -Continue with Klonopin, Cymbalta -Seroquel resumed at 50 Seizure disorder -Tegretol Acute kidney injury, resolved DVT prophylaxis: SCDs Discussed with: Patient, nursing, case management Anticipated discharge: 1-[address]: Home with home health A total of 35 minutes was spent on the care of this complex patient more than 50% of the time was spent in counseling and care coordination. Objective - Vital Signs Vital signs: Vital Signs Temp 98.2 F 05/31/20 07:00 Pulse 76 05/31/20 07:00 Resp 18 05/31/20 07:00 BP 176/87 05/31/20 07:00 Pulse Ox 99 05/31/20 07:00 Intake & Output 05/30/20 05/31/20 05/31/20 18:59 06:59 18:59 Other: Voiding Method Diaper Diaper Incontinent Incontinent Incontinent # Voids 1 1 # Bowel Movements 1 - Labs CBC & Chem 7: 05/31/20 06:11 05/31/20 06:11 Labs: Abnormal Lab Results - Last 24 Hours (Table) 05/31/20 05/31/20 Range/Units 06:11 06:11 WBC 4.11 L (4.50-10.00) X 10*3/uL RBC 3.56 L (4.40-5.60) X 10*6/uL Hgb 11.6 L (13.0-17.0) g/dL Hct 35.8 L (39.6-50.0) % MCV 100.6 H (80.0-97.0) fL MCH 32.6 H (27.0-32.0) pg Chloride 115 H (96-109) mmol/L BUN/Creatinine Ratio 9.09 L (12.00-20.00) Ratio
[2020-05-31] MEDS: FOLIC ACID 1 MG TAB PO SCH (12:39)
--- NOTE | 2020-05-31 12:53 | P.PN ---
Progress Note - Text Progress Note Date: 05/31/20 Interval History: Patient was seen today for psychiatric follow-up regarding patient's delirium. Patient appears to be mildly less confused today and was attempting to cooperate with screen writer during conversation. He continues to have a improvement in his affect and was fairly polite. he continues to have bilateral upper extremity tremors which appears to be improving mildly. Patient continues to have word finding difficulties and poor concentration however this has been improving mildly. He was oriented to his name and date and location today. He states that he was able to sleep better last night and claims to have a fair appetite. At this time patient denies any suicidal or homical ideations, intent or plan. Patient denies any auditory, visual hallucinations and denies any paranoia or delusions. Mental Status Exam: General Appearance: Patient appears to be stated age is alert, more directable today, attempting to cooperate, fairly pleasant. Patient appears to have fair hygiene and grooming wearing hospital gown. Behavior: Patient is calmly lying in bed without any agitated behavior. Improving concentration Speech: Patient's speech is fluent and nonpressured. Hesitant at times. Word finding difficulties at times. Mood/Affect: Patient reports their mood is "good", affect is congruent and appropriate Suicidality/Homicidality: Patient denies having any suicidal or homicidal ideation intent or plan. Perceptions: Patient denies any visual hallucinations and denies any auditory hallucinations Though content/process: improving concentration, no delusions or paranoia. More logical today. Word finding difficulties. Memory and concentration: AOX3. knows who the current president is. Cannot spell "WORLD" backwards. Judgment and insight: Improving mildly. Assessment Delirium, likely etiology secondary to medications (lithium toxicity) Bipolar disorder Nicotine dependence Plan: -At this time patient DOES NOT meet criteria for inpatient psychiatric admission. -Delirium precautions recommended with patient including - avoiding use of narcotics and TRAFFIC REPORTER sedatives, limit anticholinergic medications when possible, frequent re-orientation, minimize use of restraints, open window shades during the day and close them at night -Would recommend the following medication changes/additions: Continue with Seroquel 50 mg daily at bedtime for mood stabilization/insomnia. Continue holding lithium dose. We'll continue to trend lithium levels as they have been gradually improving, last lithium level noted to be 0.6 this morning. Continue with hydration and frequent reorientation. Continue with Klonopin to 1 mg twice a day for anxiety. Continue current dose of Cymbalta and Tegretol. -TSH noted to be within normal limits. B12 and folic acid appear to be low, neurology will order to replace. urine analysis negative -Appreciate neurology recommendations. -hog worker to provide patient with outpatient mental health/psychiatry resources for appropriate follow up upon discharge -Will continue to follow along -Please contact with any questions.
--- NOTE | 2020-05-31 14:56 | P.CNNES ---
History of Present Illness Consult date: 05/31/20 Requesting physician: Damien Rodríguez Reason for Consult: [place] toxicity, neuro symptoms worsening as lithium levels decrease History of Present Illness: Patient is a 60-year-old male came to the hospital on 05/28/2020 for tremors, generalized weakness, weight loss, slurred speech and not seeming like himself of 1 week duration. He was complaining of being foggy, blurred vision, no fever or chills. No nausea vomiting. Patient tells me that he has lot of anxiety, and was getting "heavy medications". He was diagnosed with lithium toxicity. Patient's lithium level was 2.5. Patient has been seen by psychiatrist, and was diagnosed with delirium related to lithium toxicity, bipolar disorder, nicotine dependence. [place] was held for psychiatry. Patient was continued on Seroquel 50 mg daily, continued on Klonopin 1 mg twice a day for anxiety and Cymbalta 90 mg daily and Tegretol 400 mg twice a day. Patient was noticed to be continued to be confused, delirious despite having return off lithium level to normality, therefore prompted neurology consultation. Patient's calcium was also elevated 10.4 and magnesium 2.4. Patient's B12 level was checked, which is low 204, folate also low 4.8. RPR negative. HIV negative, bernal virus PCR negative. Urine drug screen positive for tricyclics and benzodiazepine. Tegretol level was 6.7. Patient denies any tobacco or alcohol use or any drugs. Review of Systems As above in the HPI. Patient complains of fatigue, tremors. Problems with gait. Denies any chest pain, shortness of breath, wheezing or cough. Denies double vision, loss of vision, slurred speech, facial droop. Patient states that he is having blurred vision but attributes to lack of eyeglasses available in the hospital. Otherwise his vision is fine. Patient had multiple knee surgeries. All other review of systems reviewed and noncontributory. Past Medical History Past Medical History: Cancer, Eye Disorder, Pneumonia, Seizure Disorder Additional Past Medical History / Comment(s): no seizure in the past 5 years, murmur, skin cancer History of Any Multi-Drug Resistant Organisms: None Reported Past Surgical History: Hernia Repair, Joint Replacement Additional Past Surgical History / Comment(s): Bilateral total hip arthroplasties, bilateral total knee arthroplasties each with a revision., hernia at 9 weeks, back fusion L5-S1 05/21/17 Past Anesthesia/Blood Transfusion Reactions: No Reported Reaction Past Psychological History: ADD/ADHD, Bipolar, Panic Disorder Smoking Status: Current every day smoker Past Alcohol Use History: None Reported Past Drug Use History: None Reported - Past Family History Sister(s) Family Medical History: Cancer Additional Family Medical History / Comment(s): breast Father Family Medical History: Cancer Additional Family Medical History / Comment(s): bladder and colon Medications and Allergies Home Medications Medication Instructions Recorded Confirmed Type DULoxetine HCL [Cymbalta] 60 mg PO DAILY 05/14/17 05/28/20 History QUEtiapine FUMARATE [SEROquel] 600 mg PO HS 05/14/17 05/28/20 History clonazePAM [KlonoPIN] 1 mg PO HS 05/14/17 05/28/20 History clonazePAM [KlonoPIN] 2 mg PO DAILY 05/14/17 05/28/20 History carBAMazepine [TEGretol XR] 400 mg PO BID 05/21/17 05/28/20 History Cyclobenzaprine [Flexeril] 20 mg PO HS 05/28/20 05/28/20 History DULoxetine HCL [Cymbalta] 30 mg PO DAILY 05/28/20 05/28/20 History [place] Carbonate [[place] 600 mg PO BID 05/28/20 05/28/20 History Carbonate ER] Sildenafil Citrate 100 mg PO DAILY PRN 05/28/20 05/28/20 History Lisinopril [Prinivil] 5 mg PO DAILY 05/30/20 05/30/20 History Allergies Allergy/AdvReac Type Severity Reaction Status Date / Time No Known Allergies Allergy Unverified 05/28/20 12:55 Physical Examination - Vital Signs Vital Signs: Vital Signs Temp Pulse Pulse Resp BP Pulse Ox 05/31/20 07:00 98.2 F 76 18 176/87 99 05/31/20 02:00 99 05/31/20 01:20 98.4 F 69 16 157/73 99 05/30/20 19:30 98.2 F 75 16 174/85 98 05/30/20 15:00 98.5 F 80 19 184/80 97 Intake and Output 05/30/20 05/31/20 05/31/20 22:59 06:59 14:59 Other: Voiding Method Diaper Incontinent Incontinent # Voids 1 On examination patient is a late middle aged male, in no acute distress. He appears slightly delirious, mildly encephalopathic. Patient states is June and the year is 2020. He states that he is in [facility], does not remember the exact name [place]. He knows that current president's [place] and previously was [place]. Patient denies any problems with vision, only that he does not have eyeglasses in the hospital therefore seeing blurred vision. No new worsening otherwise. On cranial examination pupils are round and reactive to light, visual courtney are full on confrontation, extraocular muscles are intact with no nystagmus. Face is symmetric, tongue protrudes to the midline. Palatal elevation and sensation normal, hearing and shoulder shrug normal, facial sensation is normal. On muscle strength testing there is no pronator drift and the strength is normal in arms and legs distally and proximally. Reflexes are 2 in the upper limbs at biceps and brachioradialis, absent at the knees, 1+ ankles and plantars are downgoing. He has evidence of previous bilateral knee surgeries. Sensory touch is equal with no neglect. No ataxia for [id number] testing. Patient's tone is moderately increased. There are no tremors at rest. He has mild fine tremors of outstretched hands, and some metabolic jerky tremor for [id number] testing. He appears bradykinetic. Patient states that he is walking with the walker. On general examination there is no carotid bruit or murmur, peripheral pulses are present. No edema. Abdomen is soft nontender. Chest is clear. Results - Laboratory Findings CBC and BMP: 05/31/20 06:11 05/31/20 06:11 Abnormal Lab Findings: Abnormal Labs 05/28/20 05/28/20 05/28/20 12:26 12:26 18:17 WBC RBC 4.06 L Hgb Hct MCV Plt Count 128 L Lymphocytes # 0.8 L Sodium 134 L Chloride Carbon Dioxide BUN 24 H Creatinine 1.49 H Glucose 102 H Calcium 10.4 H Magnesium 2.4 H Alkaline Phosphatase 207 H Total Protein U Tricyclic Antidepress U Benzodiazepines Scrn [place] 2.5 H* 2.3 H* 05/28/20 05/29/20 05/29/20 20:15 00:08 06:07 WBC 3.2 L RBC 3.58 L Hgb 11.9 L Hct 36.0 L MCV 100.4 H Plt Count 103 L Lymphocytes # 0.8 L Sodium Chloride Carbon Dioxide BUN Creatinine Glucose Calcium Magnesium Alkaline Phosphatase Total Protein U Tricyclic Antidepress Detected H U Benzodiazepines Scrn Detected H [place] 2.1 H* 05/29/20 05/30/20 05/30/20 06:07 07:40 07:40 WBC 3.4 L RBC 3.84 L Hgb 12.6 L Hct 38.4 L MCV Plt Count 116 L Lymphocytes # Sodium 136 L Chloride 111 H 111 H Carbon Dioxide 19 L 18 L BUN Creatinine Glucose 109 H Calcium Magnesium Alkaline Phosphatase 191 H Total Protein 5.8 L U Tricyclic Antidepress U Benzodiazepines Scrn [place] 1.9 H* Assessment and Plan Assessment: * Altered mental status, with tremors, generalized weakness, probably related to delirium/metabolic encephalopathy due to lithium toxicity. Patient also had hypercalcemia. * Vitamin B12 deficiency * Folate deficiency * Anxiety disorder * Bipolar disorder. * Extrapyramidal symptoms, possibly due to effect of lithium toxicity, or may be due to previous use of antipsychotics. Plan: * Patient had significant lithium toxicity. Now the levels are in therapeutic range. Calcium level is also back to normal. It probably will take time for neurological manifestation to slowly improve. I think watchful observation is the best choice. Patient also has been diagnosed with vitamin B12 and folate deficiency, which could be contributing to memory dysfunction, delirium and imbalance. Patient will be started on vitamin B12 1000 g daily, folate 1 mg daily. I would suggest watchful observation and may follow up with a neurologist in 2-4 weeks. * Patient also has extrapyramidal symptoms with bradykinesia, rigidity, and gait imbalance. I think watchful observation is the best choice, especially that he was so low on B12 and folate, which may be contributing. * PT OT. * No other neurological workup indicated.
[2020-05-31] MEDS: QUEtiapine 50 MG TAB PO SCH (19:45)
[2020-06-01] MEDS: HEPARIN SODIUM,PORCINE 5,000 UNIT/ML 1 ML VIAL SQ SCH ×4 (00:06→22:17)
[2020-06-01] MEDS: FOLIC ACID 1 MG TAB PO SCH (08:31)
[2020-06-01] MEDS: amLODIPine 10 MG TAB PO SCH (08:31)
[2020-06-01] MEDS: clonazePAM 1 MG TAB PO SCH ×2 (08:32→22:18)
[2020-06-01] MEDS: CYANOCOBALAMIN 1,000 MCG/ML 1 ML VIAL IM SCH (08:33)
[2020-06-01] MEDS: DULoxetine HCL 30 MG CAPSULE.DR PO SCH (08:34)
[2020-06-01] MEDS: carBAMazepine 400 MG TAB.ER.12H PO SCH ×2 (08:34→22:18)
[2020-06-01] MEDS ORDERED: amLODIPine 5 MG TAB PO SCH (09:00)
--- NOTE | 2020-06-01 10:59 | P.PN ---
Progress Note - Text Progress Note Date: 06/01/20 Interval History: Patient was seen today for psychiatric follow-up regarding patient's delirium/ confusion. Patient appears to be mildly less confused today once again. He was attempting to cooperate with health underwriter during conversation. He continues to have a improvement in his affect and was fairly polite. He claims that he is feeling better overall in terms of his mood and also his thought process. He continues to have word finding difficulties at times however has significant improvement in his concentration. He has improvement in his tremors in his hands. He was oriented to his name and date however not location. He states that he was able to sleep better last night and claims to have a fair appetite. At this time patient denies any suicidal or homical ideations, intent or plan. Patient denies any auditory, visual hallucinations and denies any paranoia or delusions. Mental Status Exam: General Appearance: Patient appears to be stated age is alert, more directable today, attempting to cooperate, fairly pleasant. Patient appears to have fair hygiene and grooming wearing hospital gown. Behavior: Patient is calmly lying in bed without any agitated behavior. Speech: Patient's speech is fluent and nonpressured. Word finding difficulties at times, improving mildly Mood/Affect: Patient reports their mood is "much better", affect is congruent and appropriate Suicidality/Homicidality: Patient denies having any suicidal or homicidal ideation intent or plan. Perceptions: Patient denies any visual hallucinations and denies any auditory hallucinations Though content/process: improving concentration, no delusions or paranoia. More logical today. Word finding difficulties, improving mildly Memory and concentration: AOX2-3, does not know his current location. knows who the current president is. Cannot spell "WORLD" backwards. Judgment and insight: Improving mildly. Assessment Delirium, likely etiology secondary to medications (lithium toxicity) Bipolar disorder Nicotine dependence Plan: -At this time patient DOES NOT meet criteria for inpatient psychiatric admission. -Delirium precautions recommended with patient including - avoiding use of narcotics and QA INTERN sedatives, limit anticholinergic medications when possible, frequent re-orientation, minimize use of restraints, open window shades during the day and close them at night -Would recommend the following medication changes/additions: Continue with Seroquel 50 mg daily at bedtime for mood stabilization/insomnia. Continue holding off on lithium dose. Continue with hydration and frequent reorientation. Continue with Klonopin to 1 mg twice a day for anxiety. Continue current dose of Cymbalta and Tegretol. -TSH noted to be within normal limits. B12 and folic acid appear to be low, replaced. urine analysis negative -Appreciate neurology recommendations. Continue to monitor symptoms for impr ovement, this could take several days or weeks. Patient may need outpatient follow-up with neurology. -cold storage worker to provide patient with outpatient mental health/psychiatry resources for appropriate follow up upon discharge -At this time psychiatry will sign off. -Please contact with any questions.
--- NOTE | 2020-06-01 13:33 | P.PN ---
Subjective Progress Note Date: 06/01/20 (sergio charting seen at 0830) Principal diagnosis: tremors and confusion Patient is a 60-year-old male for history of seizure disorder, bipolar, and hypertension who presented to the emergency department secondary to increased tremors and confusion. A thorough exam was done in the ER. Head CT demonstrated no acute process. Chest x-ray was negative. Laboratory analysis came back with a BUN of 24, creatinine 1.49, glucose 102, calcium 10.4, magnesium 2.4, urine drug screen positive for TCA and benzodiazepines, lithium level of 2.3, and platelets of 128. Patient was determined to have lithium toxicity. Poison control was contacted. They recommended conservative elvis gement with IV fluids, EKG monitoring, and supportive care. Patient was subsequently admitted. He has a history of chronic thrombocytopenia dating back to 2014. Despite lowering of his lithium level to normal he continued to have neurologic symptoms. He was mateo by psych who helped with medication adjustments. Due to prolonged symptoms neuro was consulted and agreed with prolonged symptoms due to lithium. He did improve slowly every day. His was willing to take him home and is able to be be there 28/10 as he is retired. Patient seen and examined at bedside. He continues to be alert and oriented to person and place. He struggles with years. He states he is having some difficulty thinking. His tremors are better. General: Ill appearing, no distress, appears at stated age Derm: warm, dry Head: atraumatic, normocephalic, symmetric Eyes: EOMI, no lid lag, anicteric sclera Mouth: no lip lesion, mucus membranes moist Cardiovascular: S1S2 reg, no murmur, positive posterior tibial pulse bilateral, Lungs: CTA bilateral, no rhonchi, no rales , no accessory muscle use Abdominal: soft, nontender to palpation, no guarding, no appreciable organomegaly Ext: no gross muscle atrophy, no edema, no contractures Neuro: CN II-XI grossly intact, no focal neuro deficits, no tremors noted, finger to nose poor in left upper extremity, improved in right upper extremity Psych: Alert, oriented to self believes it is 2004. Perseverates on the as the year and month, appropriate affect Assessment and plan: Chronic [place] toxicity with prolonged neurologic symptoms - neurology recommendations appreciated -Appreciate psychiatry recommendations -Continue to hold lithium - TSH normal - No ekg changes noted Toxic Metabolic Encephalopathy -Related to above B 12 deficiency IM daily until discharge then repeat labs in 4 weeks and likely continued outpatient administratio Pancytopenia with chronic thrombocytopenia - suspect related to acute illness - follow CBC - Repeat 1 week after discharge. Hypertension, accelerated -Patient was taken off lisinopril at admission secondary to decreased renal clearance of lithium -Follow blood pressures -Start Norvasc 5 mg daily Hyperchloremic metabolic acidosis -Transitioned off IV fluids -Repeat labs in a.m. Bipolar disorder -Psych recommendations appreciated -Continue with Klonopin, Cymbalta -Seroquel resumed at 50 Seizure disorder -Tegretol Acute kidney injury, resolved DVT prophylaxis: SCDs Discussed with: Patient, nursing, case management Anticipated discharge: 1-[address]: Home with home health A total of 35 minutes was spent on the care of this complex patient more than 50% of the time was spent in counseling and care coordination. Objective - Vital Signs Vital signs: Vital Signs Temp 99.5 F 06/01/20 07:00 Pulse 78 06/01/20 07:00 Resp 18 06/01/20 07:00 BP 168/70 06/01/20 07:00 Pulse Ox 96 06/01/20 07:00 Intake & Output 05/31/20 06/01/20 06/01/20 18:59 06:59 18:59 Output Total 2 Balance -2 Output: Urine 2 Other: Voiding Method Incontinent Diaper Diaper Incontinent Incontinent # Voids 2 3 - Labs CBC & Chem 7: 05/31/20 06:11 05/31/20 06:11
[2020-06-01 14:15] VITALS: BMI 25.7
[2020-06-01] MEDS: QUEtiapine 50 MG TAB PO SCH (22:18)
[2020-06-02] MEDS: clonazePAM 1 MG TAB PO SCH (06:59)
[2020-06-02] MEDS: HEPARIN SODIUM,PORCINE 5,000 UNIT/ML 1 ML VIAL SQ SCH (06:59)
[2020-06-02] MEDS: FOLIC ACID 1 MG TAB PO SCH (06:59)
[2020-06-02] MEDS: amLODIPine 10 MG TAB PO SCH (06:59)
[2020-06-02] MEDS: DULoxetine HCL 30 MG CAPSULE.DR PO SCH (07:00)
[2020-06-02] MEDS: CYANOCOBALAMIN 1,000 MCG/ML 1 ML VIAL IM SCH (07:00)
[2020-06-02] MEDS: carBAMazepine 400 MG TAB.ER.12H PO SCH (07:01)
[2020-06-02 08:27] VITALS: BP 167/86; PULSE 105; RESP 17; TEMP 97.9
--- NOTE | 2020-06-02 21:05 | P.DS ---
Providers Date of admission: 05/29/20 10:25 Expected date of discharge: 06/02/20 Attending physician: Asuncion Dixon DO Consults: 05/29/20 10:26 Consult Physician Routine Consulting Provider: Sebas Chaidez Consult Reason/Comments: Litium toxicity, need medication managment/alternatives Do you want consulting provider notified?: Already Contacted 05/30/20 10:06 Consult Physician Routine Consulting Provider: Perry Dhillon Consult Reason/Comments: Adm w/ lithium toxicity neuro symptoms worsening as lithium levels decrease Do you want consulting provider notified?: Yes Primary care physician: Lisa Diaz Hospital Course: Discharge Diagnosis: Chronic lithium toxicity with prolonged neurologic symptoms Toxic metabolic encephalopathy Vitamin B-12 deficiency Pancytopenia with chronic thrombocytopenia Hypertension, accelerated Hyperchloremic metabolic acidosis, resolved Bipolar disorder Seizure disorder Acute kidney injury Hospital Course: Patient is a 60-year-old male for history of seizure disorder, bipolar, and hypertension who presented to the emergency department secondary to increased tremors and confusion. A thorough exam was done in the ER. Head CT demonstrated no acute process. Chest x-ray was negative. Laboratory analysis came back with a BUN of 24, creatinine 1.49, glucose 102, calcium 10.4, magnesium 2.4, urine drug screen positive for TCA and benzodiazepines, lithium level of 2.3, and platelets of 128. Patient was determined to have lithium toxicity. Poison control was contacted. They recommended conservative management with IV fluids, EKG monitoring, and supportive care. Patient was subsequently admitted. He has a history of chronic thrombocytopenia dating back to 2014. Despite lowering of his lithium level to normal he continued to have neurologic symptoms. He was mateo by psych who helped with medication adjustm ents. Due to prolonged symptoms neuro was consulted and agreed with prolonged symptoms due to lithium. He did improve slowly every day. His was willing to take him home and is able to be be there 28/10 as he is retired. He was taken off of lithium and this should not be restarted. His Seroquel was decreased to 50 mg daily. We have recommended outpatient psychiatry services to help with medication management after discharge secondary to his inability to continue with lithium. He also was noted to have mild B12 deficiency. He was given 2 doses of IM vitamin B12. Have recommended following up with his primary care for this and having repeat B12 levels done in approximately one month. His lisinopril had been stopped secondary to acute kidney injury injury and he was transitioned to Norvasc. He will also follow-up with neurology on discharge as well as having [facility] home care if he continues to recover. Patient seen and examined at bedside. He is feeling well today. Alert to the year, being in the hospital. Again struggles with naming the month as May and says 15. Denies any nausea or vomiting. States that it is easier to perform simple task. Vital signs reviewed and stable. General: non toxic, no distress, appears at stated age Derm: warm, dry Head: atraumatic, normocephalic, symmetric Eyes: EOMI, no lid lag, anicteric sclera Mouth: no lip lesion, mucus membranes moist Cardiovascular: S1S2 reg, no murmur, positive posterior tibial pulse bilateral, Lungs: CTA bilateral, no rhonchi, no rales , no accessory muscle use Abdominal: soft, nontender to palpation, no guarding, no appreciable organomegaly Ext: no gross muscle atrophy, no edema, no contractures Neuro: CN II-XI grossly intact, no focal neuro deficits, finger to nose improved on left still difficult on right, no tremors noted Psych: Alert, oriented to year and place, appropriate affect A total of 37 minutes of time were spent preparing this complex discharge summary . Patient Condition at Discharge: Stable Plan - Discharge Summary New Discharge Prescriptions: New amLODIPine [Norvasc] 10 mg PO DAILY #30 tab QUEtiapine [SEROquel] 50 mg PO HS #30 tab Continue DULoxetine HCL [Cymbalta] 60 mg PO DAILY clonazePAM [KlonoPIN] 1 mg PO HS clonazePAM [KlonoPIN] 2 mg PO DAILY carBAMazepine [TEGretol XR] 400 mg PO BID Cyclobenzaprine [Flexeril] 20 mg PO HS DULoxetine HCL [Cymbalta] 30 mg PO DAILY Sildenafil Citrate 100 mg PO DAILY PRN PRN Reason: E.D. Discontinued QUEtiapine FUMARATE [SEROquel] 600 mg PO HS [place] Carbonate [[place] Carbonate ER] 600 mg PO BID Lisinopril [Prinivil] 5 mg PO DAILY Discharge Medication List DULoxetine HCL [Cymbalta] 60 mg PO DAILY 05/14/17 [History] clonazePAM [KlonoPIN] 1 mg PO HS 05/14/17 [History] clonazePAM [KlonoPIN] 2 mg PO DAILY 05/14/17 [History] carBAMazepine [TEGretol XR] 400 mg PO BID 05/21/17 [History] Cyclobenzaprine [Flexeril] 20 mg PO HS 05/28/20 [History] DULoxetine HCL [Cymbalta] 30 mg PO DAILY 05/28/20 [History] Sildenafil Citrate 100 mg PO DAILY PRN 05/28/20 [History] QUEtiapine [SEROquel] 50 mg PO HS #30 tab 06/02/20 [Rx] amLODIPine [Norvasc] 10 mg PO DAILY #30 tab 06/02/20 [Rx] Follow up Appointment(s)/Referral(s): Zenia Hernandez MD [REFERRING] - 1 Week (office will call patient to arrange appointment) [facility], [NON-STAFF] - ([facility] will call you to set up your first visit. ) Lisa Diaz MD [Primary Care Provider] - 06/07/20 10:00 am Patient Instructions/Handouts: [place] Toxicity (DC) Activity/Diet/Wound Care/Special Instructions: Activity: as tolerated Diet: Heart Healthy Special Instructions: follow-up on B12 levels in 4 weeks follow-up with psychiatry No lithium Discharge Disposition: HOME SELF-CARE
--- NOTE | 2020-06-02 21:07 | P.PN ---
Subjective Progress Note Date: 06/01/20 Patient was seen for a follow-up. Patient is sitting in the chair, very comfortable, smiling. Denies any new symptoms. States mentation is improving. Still has tremors. No headache. Sometimes feels stuttering. Objective - Vital Signs Vital signs: Vital Signs Temp 98.3 F 06/01/20 14:24 Pulse 72 06/01/20 14:24 Resp 18 06/01/20 14:24 BP 157/76 06/01/20 14:24 Pulse Ox 98 06/01/20 14:24 Intake & Output 05/31/20 06/01/20 06/01/20 18:59 06:59 18:59 Output Total 2 200 Balance -2 -200 Weight 81.284 kg Output: Urine 2 200 Other: Voiding Method Incontinent Diaper Diaper Incontinent Incontinent # Voids 2 3 1 - Exam Patient's mentation is normal. Patient has fine tremors of outstretched hands. No tremors at rest. Muscle strength is normal. Cranial nerves normal. - Labs CBC & Chem 7: 05/31/20 06:11 05/31/20 06:11 Assessment and Plan Assessment: * Altered mental status, with tremors, generalized weakness, probably related to delirium/metabolic encephalopathy due to lithium toxicity. Patient also had hypercalcemia. * Vitamin B12 deficiency * Folate deficiency * Anxiety disorder * Bipolar disorder. * Extrapyramidal symptoms, possibly due to effect of lithium toxicity, or may be due to previous use of antipsychotics. Plan: * Patient had significant lithium toxicity. Now the levels are in therapeutic range 0.6. Calcium level is also back to normal. It probably will take time for neurological manifestation to slowly improve. I think watchful observation is the best choice. Patient also has been diagnosed with vitamin B12 and folate deficiency, which could be contributing to memory dysfunction, delirium and imbalance. Patient will be started on vitamin B12 1000 g daily, folate 1 mg daily. I would suggest watchful observation and may follow up with a neurologist in 2-4 weeks. * Patient also has extrapyramidal symptoms with bradykinesia, rigidity, and gait imbalance. I think watchful observation is the best choice, especially that he was so low on B12 and folate, which may be contributing. * PT OT. * No other neurological workup indicated. * Neurologically clear for discharge.
== END 2020-06-02 09:28 | disposition home or self-care (01) | DRG 92 ==
LOC: EC 11:55 → 6NMEDSUR 13:55 → 4SSUR 15:05 → OBSVTOIN 05-29 10:25
PROVIDERS: ADMIT Internal Medicine; ATTEND Internal Medicine
DX: G92 Toxic encephalopathy (principal); N17.9 Acute kidney failure, unspecified; E87.1 Hypo-osmolality and hyponatremia; D61.818 Other pancytopenia; E87.2 Acidosis; T46.4X5A Adverse effect of angiotensin-converting-enzyme inhibitors, initial encounter; F90.9 Attention-deficit hyperactivity disorder, unspecified type; F31.9 Bipolar disorder, unspecified; D69.6 Thrombocytopenia, unspecified; E86.0 Dehydration; G40.909 Epilepsy, unspecified, not intractable, without status epilepticus; E53.8 Deficiency of other specified B group vitamins; I10 Essential (primary) hypertension; T43.595A Adverse effect of other antipsychotics and neuroleptics, initial encounter; E83.41 Hypermagnesemia; E83.52 Hypercalcemia; G89.29 Other chronic pain; Z20.822 Contact with and (suspected) exposure to COVID-19; M54.9 Dorsalgia, unspecified; R32 Unspecified urinary incontinence; R29.6 Repeated falls; H57.9 Unspecified disorder of eye and adnexa; G25.1 Drug-induced tremor; R26.89 Other abnormalities of gait and mobility; F17.210 Nicotine dependence, cigarettes, uncomplicated; Z79.899 Other long term (current) drug therapy; Z85.828 Personal history of other malignant neoplasm of skin
CPT/HCPCS: 36415; 70450; 71046; 80048; 80053; 80156; 80178; 80306; 81003; 82607; 82746; 83735; 83880; 84443; 84484; 85025; 85027; 85610; 85730; 86780; 87390; 87635; 93005; 96360; 96361; 99285

== ENCOUNTER 2020-08-17 21:51 | Emergency (ER) | payer MEDICARE, OTHER ==
[2020-08-17 22:05] VITALS: BP 164/85; PULSE 78; RESP 18; TEMP 98.9
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
[2020-08-18] LABS: Amphetamine Screen,Urine Not Detected (NotDetected); Barbiturate Screen,Urine Not Detected (NotDetected); Benzodiazepines Screen,Urine Detected (NotDetected); Cocaine Screen,Urine Not Detected (NotDetected); Methadone Screen, Urine Not Detected (NotDetected); Opiate Screen,Urine Detected (NotDetected); Oxycodone Screen, Urine Not Detected (NotDetected); Phencyclidine Screen,Urine Not Detected (NotDetected); Tricyclic Antidepressant,Urine Detected (NotDetected); Urn Cannabinoid Scrn Not Detected (NotDetected)
[2020-08-18] MEDS ORDERED: NICOTINE 14MG/24HR PATCH TRANSDERM STA (00:19)
== END 2020-08-18 01:12 | disposition home or self-care (01) ==
LOC: EC 21:51
DX: F43.20 Adjustment disorder, unspecified (principal); S50.811A Abrasion of right forearm, initial encounter; F31.9 Bipolar disorder, unspecified; F90.9 Attention-deficit hyperactivity disorder, unspecified type; G40.909 Epilepsy, unspecified, not intractable, without status epilepticus; F17.200 Nicotine dependence, unspecified, uncomplicated; Z85.828 Personal history of other malignant neoplasm of skin; Z79.899 Other long term (current) drug therapy; X58.XXXA Exposure to other specified factors, initial encounter
CPT/HCPCS: 80306; 82075; 99283

== ENCOUNTER → 2020-09-13 | Outpatient (CLI) | payer MEDICARE, OTHER ==
[2020-09-13 14:29] LABS: Basophils # (A) 0.04 X 10*3/uL (0.00-0.10); Basophils % (A) 0.8 %; Eosinophils # (A) 0.04 X 10*3/uL (0.04-0.35); Eosinophils % (A) 0.8 %; HCT 41.5 % (39.6-50.0); HGB 13.3 g/dL (13.0-17.0); Lymphocytes # (A) 0.94 X 10*3/uL (0.90-5.00); Lymphocytes % (A) 19.2 %; MCH 33.8 pg (27.0-32.0); MCV 105.3 fL (80.0-97.0); Mean Platelet Volume 11.5 fL (9.5-12.2); Monocytes # (A) 0.45 X 10*3/uL (0.20-1.00); Monocytes % (A) 9.2 %; Neutrophils % (A) 69.6 %; Platelet Count 147 X 10*3/uL (140-440); RBC 3.94 X 10*6/uL (4.40-5.60); RDW 13.2 % (11.5-14.5); WBC 4.89 X 10*3/uL (4.50-10.00)
[2020-09-13 14:36] LABS: Macrocytosis (M) 2+
== END | disposition home or self-care (01) ==
LOC: LABWHC1 06:59
PROVIDERS: ATTEND Nurse Practitioner Family
DX: D69.2 Other nonthrombocytopenic purpura (principal)
CPT/HCPCS: 36415; 85025